=== PATIENT | female | born 1960 | race Caucasian/White ===

== ENCOUNTER 2016-11-07 15:49 | Emergency (ER) | payer OTHER ==
[~2016-11-07] VITALS: Ht 167.6 cm; Wt 136.4 kg
[~2016-11-07 15:49] MED LIST: ALBU8.5H IH; AMLO2.5T PO; APIX5TAB PO; DSS100 PO; FERR-89 PO; FLUO20CA30 PO; FURO40 PO; GABA-533 PO; INS7030 SQ; KDUR10 PO; METO5TAB95 PO; OMEP20 PO; SHOWER CHAIR; VITAD1000 PO; [UNRECOGNIZED DRUG - OTHER]
[2016-11-07 16:00] LABS: GLUCOSE,POINT OF CARE 232 MG/DL (70-110)
[2016-11-07] MEDS ORDERED: METO-325 PO (16:02)
[2016-11-07] MEDS ORDERED: HYDR-309 PO (16:02)
[2016-11-07] MEDS ORDERED: PATI8.4P PO (16:02)
[2016-11-07] MEDS ORDERED: LOSA50TA37 PO (16:02)
[2016-11-07] MEDS ORDERED: AMLO-511 PO (17:41)
[2016-11-07] MEDS ORDERED: HYDROCODONE/ACETAMINOPHEN 10-325 MG TABLET PO ONE (17:45)
[2016-11-07 18:32] VITALS: BP 146/61
== END 2016-11-07 19:29 | disposition home or self-care (01) ==
LOC: EMS 15:51
DX: S90.122A Contusion of left lesser toe(s) without damage to nail, initial encounter (principal); G89.29 Other chronic pain; F41.9 Anxiety disorder, unspecified; I25.10 Atherosclerotic heart disease of native coronary artery without angina pectoris; I50.9 Heart failure, unspecified; J44.9 Chronic obstructive pulmonary disease, unspecified; F32.9 Major depressive disorder, single episode, unspecified; E11.9 Type 2 diabetes mellitus without complications; E78.00 Pure hypercholesterolemia, unspecified; I10 Essential (primary) hypertension; W22.03XA Walked into furniture, initial encounter; Y93.89 Activity, other specified; Y92.9 Unspecified place or not applicable; Y99.9 Unspecified external cause status
CPT/HCPCS: 82962; 99284

== ENCOUNTER 2016-12-08 19:33 | Inpatient (IN) | payer OTHER ==
[~2016-12-08] VITALS: Ht 165.1 cm; Wt 161.9 kg
[~2016-12-08 19:33] MED LIST changes: -ALBU8.5H IH; +AMLO-511 PO; -AMLO2.5T PO; +HYDR-309 PO; -KDUR10 PO; +LOSA50TA37 PO; +METO-325 PO; -METO5TAB95 PO; +PATI8.4P PO
[2016-12-08 20:17] LABS: GLUCOSE,POINT OF CARE 209 MG/DL (70-110)
[2016-12-08 21:00] LABS: BASOPHILS % (AUTO) 0.5 % (0.0-2.0); EOSINOPHILS % (AUTO) 5.2 % (1.0-6.0); HEMATOCRIT 36.1 % (36-46); LYMPHOCYTES # (AUTO) 2.2 K/uL (1.0-4.8); LYMPHOCYTES % (AUTO) 26.6 % (22.0-44.0); MEAN CORPUSCULAR HEMOGLOBIN 28.1 pg (26.0-34.0); MEAN CORPUSCULAR HGB CONC 33.3 G/dL (31.0-37.0); MEAN CORPUSCULAR VOLUME 84 fL (80-100); MONOCYTES # (AUTO) 0.4 K/uL (0.1-1.0); MONOCYTES % (AUTO) 5.4 % (2.0-9.0); NEUTROPHILS # (AUTO) 5.1 K/uL (1.8-7.7); NEUTROPHILS % (AUTO) 62.3 % (40.0-70.0); PLATELET COUNT (AUTO) 328 K/uL (150-450); RED BLOOD CELL COUNT(AUTO) 4.28 MIL/uL (4.00-5.20); WHITE BLOOD COUNT (AUTO) 8.2 K/uL (4.5-11.0)
[2016-12-08 21:11] LABS: ANION GAP 9 mmol/L (8-16); CALCIUM, TOTAL 8.7 mg/dL (8.8-10.5); CARBON DIOXIDE 25 mmol/L (22-29); CHLORIDE 107 mmol/L (98-107); CREATININE 1.77 mg/dL (0.60-1.30); GLOMERULAR FILTR. RATE CALC 30 mL/min (>60); POTASSIUM 4.8 mmol/L (3.5-5.1); SODIUM SERUM 141 mmol/L (136-145); UREA NITROGEN, BLOOD 48 mg/dL (7-18)
[2016-12-08 21:18] LABS: ALANINE AMINOTRANSFERASE 23 U/L (12-78); ALBUMIN 3.3 g/dL (3.4-5.0); ASPARTATE AMINOTRANSFERASE 12 U/L (15-37); BILIRUBIN,TOTAL 0.2 mg/dL (0.1-1.0); CREATINE KINASE, TOTAL 68 U/L (26-192); TOTAL PROTEIN, SERUM 7.7 g/dL (6.4-8.2)
[2016-12-08 21:29] LABS: B-TYPE NATRIURETIC PEPTIDE 90 pg/mL (0-100)
[2016-12-09] VITALS (9 sets, daily range): BP systolic 113–165; BP diastolic 54–80
[2016-12-09] MEDS ORDERED: HYDROmorphone 2 MG/ML SYRINGE IVP ONE ×3 (00:15→09:45)
[2016-12-09] MEDS ORDERED: ONDANSETRON HCL 4 MG/2 ML VIAL IVP ONE (00:15)
[2016-12-09] MEDS ORDERED: SODIUM CHLORIDE 0.9% 1,000 ML IV ONE ×2 (00:30→02:45)
[2016-12-09 01:12] LABS: LACTIC ACID 1.1 mmol/L (0.4-2.0)
[2016-12-09 01:28] LABS: APPEARANCE,URINE CLEAR (CLEAR); GLUCOSE, URINE (UA) NEGATIVE (NEGATIVE); KETONES,URINE NEGATIVE (NEGATIVE); LEUKOCYTE ESTERASE ,URINE NEGATIVE (NEGATIVE); OCCULT BLOOD,URINE NEGATIVE (NEGATIVE); PH,URINE 5.5 (5.0-8.0); PROTEIN,URINE NEGATIVE (NEGATIVE)
[2016-12-09] MEDS ORDERED: LORazepam 2 MG/ML VIAL IVP ONE ×2 (01:30→02:45)
[2016-12-09 01:44] LABS: RBC,URINE None Seen /HPF (0-2); WBC,URINE 0-2 /HPF (0-5)
[2016-12-09] MEDS ORDERED: SODIUM CHLORIDE 0.45% 1,000 ML IV ONE (02:45)
[2016-12-09] MEDS ORDERED: ONDANSETRON HCL 4 MG/2 ML VIAL IVP PRN (02:45)
[2016-12-09] MEDS ORDERED: ACETAMINOPHEN 325 MG TABLET PO PRN ×2 (02:45→08:15)
[2016-12-09] MEDS ORDERED: 0.9% SODIUM CHLORIDE 10 ML SYRINGE IVP PRN (02:45)
[2016-12-09 07:44] LABS: GLUCOSE,POINT OF CARE 118 MG/DL (70-110)
[2016-12-09] MEDS ORDERED: DEXTROSE 50%-WATER 25 GM/50 ML SYRINGE IVP PRN (08:15)
[2016-12-09] MEDS ORDERED: BISACODYL 10 MG RECTAL RECTAL SUPPOSITORY PR PRN (08:15)
[2016-12-09] MEDS ORDERED: ALBUTEROL SULFATE 2.5 MG/0.5 ML NEB SOLUTION NEB PRN (08:15)
[2016-12-09] MEDS ORDERED: OxyCODONE HCL/ACETAMINOPHEN 5-325 MG TABLET PO PRN (08:15)
[2016-12-09] MEDS ORDERED: PANTOPRAZOLE SODIUM 40 MG DR TABLET PO SCH (09:00)
[2016-12-09] MEDS: DOCUSATE SODIUM 100 MG CAPSULE PO SCH ×2 (09:20→23:30)
[2016-12-09] MEDS: AmLODIPine BESYLATE 5 MG TABLET PO SCH (09:21)
[2016-12-09] MEDS: PANTOPRAZOLE SODIUM 40 MG DR TABLET PO SCH (09:21)
[2016-12-09] MEDS: APIXABAN 5 MG TABLET PO SCH ×2 (09:21→23:30)
[2016-12-09 11:37] LABS: GLUCOSE COMMENT 1 Doctor Notified; GLUCOSE,POINT OF CARE 195 MG/DL (70-110)
[2016-12-09] MEDS: INSULIN ASPART 100 UNITS/ML SQ PRN ×2 (12:22→21:04)
[2016-12-09] MEDS: OxyCODONE HCL/ACETAMINOPHEN 10-325 MG TABLET PO PRN ×2 (17:12→22:11)
[2016-12-09 18:41] LABS: GLUCOSE,POINT OF CARE 239 MG/DL (70-110)
[2016-12-10 04:57] VITALS: BP 137/60
[2016-12-10 07:02] VITALS: BP 142/66
[2016-12-10] MEDS: INSULIN ASPART 100 UNITS/ML SQ PRN ×2 (07:05→12:33)
[2016-12-10] MEDS: APIXABAN 5 MG TABLET PO SCH (08:38)
[2016-12-10] MEDS: DOCUSATE SODIUM 100 MG CAPSULE PO SCH (08:38)
[2016-12-10] MEDS: AmLODIPine BESYLATE 5 MG TABLET PO SCH (08:38)
[2016-12-10] MEDS: PANTOPRAZOLE SODIUM 40 MG DR TABLET PO SCH (08:38)
[2016-12-10] MEDS ORDERED: 0.9% SODIUM CHLORIDE 5 ML NEB SOLUTION NEB ONE (11:12)
[2016-12-10] MEDS ORDERED: MORPHINE SULFATE 2 MG/ML SYRINGE IVP ONE (11:15)
[2016-12-10] MEDS ORDERED: ONDANSETRON HCL 4 MG/2 ML VIAL IVP PRN (11:15)
[2016-12-10 11:34] VITALS: BP 133/57
[2016-12-10 15:51] LABS: GLUCOSE COMMENT 1 Received Meds; GLUCOSE,POINT OF CARE 325 MG/DL (70-110)
[2016-12-22 06:53] LABS: GLUCOSE COMMENT 1 Received Meds; GLUCOSE,POINT OF CARE 284 MG/DL (70-110)
== END 2016-12-10 15:30 | disposition home or self-care (01) | DRG 198 ==
LOC: EMS 19:35 → AHU 12-09 11:17 → 5S 12-09 21:30
PROVIDERS: ADMIT Internal Medicine; ATTEND Internal Medicine
DX: R07.89 Other chest pain (principal); I25.10 Atherosclerotic heart disease of native coronary artery without angina pectoris; E11.22 Type 2 diabetes mellitus with diabetic chronic kidney disease; E11.40 Type 2 diabetes mellitus with diabetic neuropathy, unspecified; E44.0 Moderate protein-calorie malnutrition; Z68.43 Body mass index [BMI] 50.0-59.9, adult; E66.01 Morbid (severe) obesity due to excess calories; F41.9 Anxiety disorder, unspecified; J44.9 Chronic obstructive pulmonary disease, unspecified; F32.9 Major depressive disorder, single episode, unspecified; K21.9 Gastro-esophageal reflux disease without esophagitis; E78.00 Pure hypercholesterolemia, unspecified; G89.29 Other chronic pain; I12.9 Hypertensive chronic kidney disease with stage 1 through stage 4 chronic kidney disease, or unspecified chronic kidney disease; N18.3 Chronic kidney disease, stage 3 (moderate); F29 Unspecified psychosis not due to a substance or known physiological condition; Z99.81 Dependence on supplemental oxygen; Z79.891 Long term (current) use of opiate analgesic; Z79.899 Other long term (current) drug therapy; Z79.01 Long term (current) use of anticoagulants; Z79.4 Long term (current) use of insulin; Z90.49 Acquired absence of other specified parts of digestive tract; Z95.5 Presence of coronary angioplasty implant and graft; Z86.711 Personal history of pulmonary embolism; Z86.718 Personal history of other venous thrombosis and embolism; Z87.440 Personal history of urinary (tract) infections; Z87.898 Personal history of other specified conditions
CPT/HCPCS: 82962; 83605; 85379; 87040; 93005; 94640; 96361; 96374; 96375; 96376; 99285; J1170; J1815; J2060; J2270; J2405; J7030

== ENCOUNTER 2017-02-02 19:09 | Emergency (ER) | payer OTHER ==
[~2017-02-02] VITALS: Ht 167.6 cm; Wt 136.0 kg
[2017-02-02] MEDS ORDERED: FEBU40T PO (19:30)
[2017-02-02] MEDS ORDERED: LOVA20 PO (19:30)
[2017-02-02 19:32] LABS: GLUCOSE,POINT OF CARE 192 MG/DL (70-110)
[2017-02-02 19:57] LABS: GLUCOSE,POINT OF CARE 184 MG/DL (70-110)
[2017-02-02 20:15] LABS: BASOPHILS % (AUTO) 0.5 % (0.0-2.0); EOSINOPHILS % (AUTO) 4.8 % (1.0-6.0); HEMATOCRIT 33.4 % (36-46); HEMOGLOBIN 10.9 g/dL (12.0-16.0); LYMPHOCYTES # (AUTO) 2.3 K/uL (1.0-4.8); LYMPHOCYTES % (AUTO) 26.6 % (22.0-44.0); MEAN CORPUSCULAR HGB CONC 32.6 G/dL (31.0-37.0); MEAN CORPUSCULAR VOLUME 86 fL (80-100); MONOCYTES # (AUTO) 0.6 K/uL (0.1-1.0); MONOCYTES % (AUTO) 7.1 % (2.0-9.0); NEUTROPHILS # (AUTO) 5.3 K/uL (1.8-7.7); PLATELET COUNT (AUTO) 295 K/uL (150-450); RED CELL DISTRIBUTION WIDTH 14.5 % (11.5-14.5); WHITE BLOOD COUNT (AUTO) 8.7 K/uL (4.5-11.0)
[2017-02-02 20:28] LABS: ANION GAP 12 mmol/L (8-16); CALCIUM, TOTAL 8.4 mg/dL (8.8-10.5); CARBON DIOXIDE 23 mmol/L (22-29); CHLORIDE 105 mmol/L (98-107); CREATININE 1.54 mg/dL (0.60-1.30); GLOMERULAR FILTR. RATE CALC 35 mL/min (>60); POTASSIUM 5.8 mmol/L (3.5-5.1); SODIUM SERUM 140 mmol/L (136-145); UREA NITROGEN, BLOOD 37 mg/dL (7-18)
[2017-02-02 20:33] LABS: ALANINE AMINOTRANSFERASE 21 U/L (12-78); ASPARTATE AMINOTRANSFERASE 13 U/L (15-37); BILIRUBIN,TOTAL 0.3 mg/dL (0.1-1.0); CREATINE KINASE, TOTAL 62 U/L (26-192); TOTAL PROTEIN, SERUM 7.1 g/dL (6.4-8.2)
[2017-02-02 20:59] LABS: B-TYPE NATRIURETIC PEPTIDE 50 pg/mL (0-100)
[2017-02-02] MEDS ORDERED: NITROGLYCERIN 2% (1 GM=INCH) PACKET TP ONE (21:00)
[2017-02-02] MEDS ORDERED: ONDANSETRON HCL 4 MG/2 ML VIAL IVP ONE (21:00)
[2017-02-02] MEDS ORDERED: MORPHINE SULFATE 4 MG/ML SYRINGE IVP ONE ×2 (21:00→22:00)
[2017-02-02 21:15] LABS: INR 0.9 (0.9-1.1); PROTHROMBIN TIME 9.8 SEC (9.4-11.6)
[2017-02-02] MEDS ORDERED: SODIUM POLYSTYRENE SULFONATE 15 GM/60 ML SUSPENSION BOTTLE PR ONE (22:30)
[2017-02-02 22:42] VITALS: BP 118/66
== END 2017-02-02 22:48 | disposition home or self-care (01) ==
LOC: EMS 19:11
DX: N28.9 Disorder of kidney and ureter, unspecified (principal); E87.5 Hyperkalemia; I13.0 Hypertensive heart and chronic kidney disease with heart failure and stage 1 through stage 4 chronic kidney disease, or unspecified chronic kidney disease; E11.29 Type 2 diabetes mellitus with other diabetic kidney complication; I50.9 Heart failure, unspecified; I25.10 Atherosclerotic heart disease of native coronary artery without angina pectoris; J44.9 Chronic obstructive pulmonary disease, unspecified; E78.00 Pure hypercholesterolemia, unspecified; K21.9 Gastro-esophageal reflux disease without esophagitis; E11.40 Type 2 diabetes mellitus with diabetic neuropathy, unspecified; Z79.4 Long term (current) use of insulin; Z86.718 Personal history of other venous thrombosis and embolism
CPT/HCPCS: 71010; 80053; 82550; 82962; 83880; 84484; 85025; 85379; 85610; 85730; 93005; 96374; 96375; 96376; 99285; J2270; J2405

== ENCOUNTER 2017-02-24 01:23 | Inpatient (IN) | payer OTHER ==
[~2017-02-24] VITALS: Ht 167.6 cm; Wt 163.7 kg
[2017-02-24] VITALS (7 sets, daily range): BP systolic 91–147; BP diastolic 54–69
[~2017-02-24 01:23] MED LIST changes: -DSS100 PO; +FEBU40T PO; -FERR-89 PO; +LOVA20 PO
[2017-02-24] MEDS ORDERED: FERR-89 PO (01:36)
[2017-02-24] MEDS ORDERED: DOCU-275 PO (01:36)
[2017-02-24 02:10] LABS: BASOPHILS % (AUTO) 0.5 % (0.0-2.0); EOSINOPHILS % (AUTO) 6.2 % (1.0-6.0); HEMATOCRIT 33.2 % (36-46); HEMOGLOBIN 10.7 g/dL (12.0-16.0); LYMPHOCYTES # (AUTO) 2.6 K/uL (1.0-4.8); LYMPHOCYTES % (AUTO) 28.9 % (22.0-44.0); MEAN CORPUSCULAR HEMOGLOBIN 27.3 pg (26.0-34.0); MEAN CORPUSCULAR HGB CONC 32.1 G/dL (31.0-37.0); MEAN CORPUSCULAR VOLUME 85 fL (80-100); MONOCYTES # (AUTO) 0.7 K/uL (0.1-1.0); MONOCYTES % (AUTO) 7.4 % (2.0-9.0); NEUTROPHILS # (AUTO) 5.1 K/uL (1.8-7.7); PLATELET COUNT (AUTO) 329 K/uL (150-450); WHITE BLOOD COUNT (AUTO) 8.9 K/uL (4.5-11.0)
[2017-02-24 02:22] LABS: CALCIUM, TOTAL 8.4 mg/dL (8.8-10.5); CREATININE 1.74 mg/dL (0.60-1.30); POTASSIUM 4.5 mmol/L (3.5-5.1)
[2017-02-24 02:28] LABS: ALBUMIN 3.1 g/dL (3.4-5.0); BILIRUBIN,TOTAL 0.3 mg/dL (0.1-1.0)
[2017-02-24] MEDS ORDERED: ONDANSETRON HCL 4 MG/2 ML VIAL IVP ONE (02:30)
[2017-02-24] MEDS ORDERED: HYDROmorphone 2 MG/ML SYRINGE IVP ONE ×2 (02:30→04:30)
[2017-02-24 02:52] LABS: INR 0.9 (0.9-1.1); PROTHROMBIN TIME 9.8 SEC (9.4-11.6)
[2017-02-24] MEDS ORDERED: LORazepam 2 MG/ML VIAL IVP ONE (04:30)
[2017-02-24] MEDS ORDERED: ACETAMINOPHEN 325 MG TABLET PO PRN ×2 (05:15→05:45)
[2017-02-24] MEDS ORDERED: 0.9% SODIUM CHLORIDE 10 ML SYRINGE IVP PRN (05:15)
[2017-02-24] MEDS ORDERED: ONDANSETRON HCL 4 MG/2 ML VIAL IVP PRN ×2 (05:15→05:45)
[2017-02-24] MEDS ORDERED: MAGNESIUM SULFATE 2 GM in DEXTROSE 5%-WATER 50 ML IV PRN (05:45)
[2017-02-24] MEDS ORDERED: MAGNESIUM HYDROXIDE SUSPENSION 30 ML UDCUP PO PRN (05:45)
[2017-02-24] MEDS ORDERED: ALBUTEROL SULFATE 2.5 MG/0.5 ML NEB SOLUTION NEB PRN (05:45)
[2017-02-24] MEDS ORDERED: POTASSIUM CHL 10 MEQ/WATER 50 ML IV PRN (05:45)
[2017-02-24] MEDS ORDERED: POTASSIUM CHLORIDE 20 MEQ ER TABLET PO PRN ×2 (05:45)
[2017-02-24] MEDS ORDERED: BISACODYL 10 MG RECTAL RECTAL SUPPOSITORY PR PRN (05:45)
[2017-02-24] MEDS ORDERED: IPRATROPIUM BROMIDE 0.5 MG/2.5 ML NEB SOLUTION NEB PRN (05:45)
[2017-02-24] MEDS ORDERED: MAGNESIUM SULFATE 4 GM/WATER 100 ML IV PRN (05:45)
[2017-02-24] MEDS ORDERED: MAGNESIUM OXIDE 400 MG TABLET PO PRN (05:45)
[2017-02-24] MEDS: NITROGLYCERIN 2% (1 GM=INCH) PACKET TP SCH ×3 (06:31→17:28)
[2017-02-24] MEDS: MORPHINE SULFATE 2 MG/ML SYRINGE IVP PRN ×3 (06:31→17:42)
[2017-02-24] MEDS ORDERED: SESTAMIBI TC99M/UD ISOTOPE 1 EA INJ INJ ONE ×2 (07:50→10:45)
[2017-02-24] MEDS: FERROUS SULFATE 325 MG EC TABLET PO SCH ×2 (08:00→18:00)
[2017-02-24] MEDS ORDERED: NITROGLYCERIN 2% (1 GM=INCH) PACKET TP SCH (08:00)
[2017-02-24] MEDS: GABAPENTIN 400 MG CAPSULE PO SCH ×3 (09:00→21:06)
[2017-02-24] MEDS: FLUoxetine HCL 20 MG CAPSULE PO SCH (09:00)
[2017-02-24] MEDS: INSULIN HUMAN NPH-REGULAR 70/30 100 UNITS/ML SQ SCH ×3 (09:00→21:07)
[2017-02-24] MEDS: FUROSEMIDE 40 MG TABLET PO SCH (09:00)
[2017-02-24] MEDS: CHOLECALCIFEROL (VIT D3) 1,000 UNITS TABLET PO SCH (09:00)
[2017-02-24] MEDS: AmLODIPine BESYLATE 5 MG TABLET PO SCH (09:00)
[2017-02-24] MEDS ORDERED: APIXABAN 5 MG TABLET PO SCH (09:00)
[2017-02-24] MEDS: HEPARIN SODIUM,PORCINE 5,000 UNITS/ML VIAL SQ SCH ×2 (09:00→21:02)
[2017-02-24] MEDS: OMEPRAZOLE 20 MG CAPSULE PO SCH ×2 (09:00→15:32)
[2017-02-24] MEDS: DOCUSATE SODIUM 100 MG CAPSULE PO SCH ×2 (09:00→21:03)
[2017-02-24] MEDS: LOSARTAN POTASSIUM 50 MG TABLET PO SCH ×2 (09:00→21:02)
[2017-02-24] MEDS ORDERED: REGADENOSON 0.4 MG/5 ML PF SYRINGE IVP ONE ×2 (10:46→16:53)
[2017-02-24] MEDS ORDERED: DEXTROSE 50%-WATER 25 GM/50 ML SYRINGE IVP PRN (15:45)
[2017-02-24 16:33] LABS: GLUCOSE,POINT OF CARE 457 MG/DL (70-110)
[2017-02-24] MEDS: INSULIN ASPART 100 UNITS/ML SQ PRN ×2 (17:30→21:08)
[2017-02-24] MEDS: OxyCODONE HCL/ACETAMINOPHEN 5-325 MG TABLET PO PRN (21:03)
[2017-02-24] MEDS: ZOLPIDEM TARTRATE 5 MG TABLET PO PRN (21:24)
[2017-02-25] VITALS (7 sets, daily range): BP systolic 114–142; BP diastolic 51–73
[2017-02-25] MEDS: NITROGLYCERIN 2% (1 GM=INCH) PACKET TP SCH ×4 (00:12→17:16)
[2017-02-25] MEDS: MORPHINE SULFATE 2 MG/ML SYRINGE IVP PRN ×4 (00:12→20:33)
[2017-02-25] MEDS: OxyCODONE HCL/ACETAMINOPHEN 5-325 MG TABLET PO PRN (05:01)
[2017-02-25 05:50] LABS: BASOPHILS % (AUTO) 0.6 % (0.0-2.0); EOSINOPHILS % (AUTO) 5.8 % (1.0-6.0); HEMOGLOBIN 10.4 g/dL (12.0-16.0); LYMPHOCYTES # (AUTO) 2.6 K/uL (1.0-4.8); MEAN CORPUSCULAR HEMOGLOBIN 27.6 pg (26.0-34.0); MEAN CORPUSCULAR HGB CONC 32.5 G/dL (31.0-37.0); MEAN CORPUSCULAR VOLUME 85 fL (80-100); MONOCYTES # (AUTO) 0.6 K/uL (0.1-1.0); MONOCYTES % (AUTO) 7.7 % (2.0-9.0); NEUTROPHILS # (AUTO) 3.6 K/uL (1.8-7.7); NEUTROPHILS % (AUTO) 49.9 % (40.0-70.0); PLATELET COUNT (AUTO) 278 K/uL (150-450); RED BLOOD CELL COUNT(AUTO) 3.77 MIL/uL (4.00-5.20); RED CELL DISTRIBUTION WIDTH 13.7 % (11.5-14.5); WHITE BLOOD COUNT (AUTO) 7.3 K/uL (4.5-11.0)
[2017-02-25 06:38] LABS: GLUCOSE,POINT OF CARE 188 MG/DL (70-110)
[2017-02-25 06:38] LABS: GLUCOSE COMMENT 1 Received Meds; GLUCOSE,POINT OF CARE 358 MG/DL (70-110)
[2017-02-25 07:16] LABS: BILIRUBIN,TOTAL 0.3 mg/dL (0.1-1.0); CALCIUM, TOTAL 8.5 mg/dL (8.8-10.5); CREATININE 1.59 mg/dL (0.60-1.30); MAGNESIUM 2.2 mg/dL (1.80-2.40); PHOSPHORUS 4.9 mg/dL (2.5-4.9); POTASSIUM 4.2 mmol/L (3.5-5.1); TOTAL PROTEIN, SERUM 6.9 g/dL (6.4-8.2)
[2017-02-25 07:33] LABS: GLUCOSE,POINT OF CARE 72 MG/DL (70-110)
[2017-02-25] MEDS: FERROUS SULFATE 325 MG EC TABLET PO SCH ×2 (08:29→17:56)
[2017-02-25] MEDS: FLUoxetine HCL 20 MG CAPSULE PO SCH (08:29)
[2017-02-25] MEDS: CHOLECALCIFEROL (VIT D3) 1,000 UNITS TABLET PO SCH (08:29)
[2017-02-25] MEDS: FUROSEMIDE 40 MG TABLET PO SCH (08:29)
[2017-02-25] MEDS: OMEPRAZOLE 20 MG CAPSULE PO SCH (08:29)
[2017-02-25] MEDS: GABAPENTIN 400 MG CAPSULE PO SCH ×3 (08:30→20:45)
[2017-02-25] MEDS: INSULIN HUMAN NPH-REGULAR 70/30 100 UNITS/ML SQ SCH ×2 (08:38→20:34)
[2017-02-25] MEDS: DOCUSATE SODIUM 100 MG CAPSULE PO SCH ×2 (08:39→20:32)
[2017-02-25] MEDS: HEPARIN SODIUM,PORCINE 5,000 UNITS/ML VIAL SQ SCH ×2 (12:11→20:32)
[2017-02-25] MEDS: AmLODIPine BESYLATE 5 MG TABLET PO SCH (12:12)
[2017-02-25] MEDS: LOSARTAN POTASSIUM 50 MG TABLET PO SCH ×2 (12:12→20:33)
[2017-02-25] MEDS: INSULIN ASPART 100 UNITS/ML SQ PRN ×3 (12:23→20:35)
[2017-02-25 14:07] LABS: GLUCOSE COMMENT 1 Received Meds; GLUCOSE,POINT OF CARE 118 MG/DL (70-110)
[2017-02-25 14:13] LABS: GLUCOSE,POINT OF CARE 142 MG/DL (70-110)
[2017-02-25] MEDS ORDERED: CHOLECALCIFEROL (VIT D3) 2,000 UNITS TABLET PO SCH (14:30)
[2017-02-25] MEDS: FEBUXOSTAT 40 MG TABLET PO SCH (16:47)
[2017-02-25] MEDS: ZOLPIDEM TARTRATE 5 MG TABLET PO PRN (20:32)
[2017-02-25 20:43] LABS: GLUCOSE COMMENT 1 Received Meds; GLUCOSE,POINT OF CARE 358 MG/DL (70-110)
[2017-02-25] MEDS ORDERED: FUROSEMIDE 40 MG TABLET PO SCH (21:00)
[2017-02-26] VITALS (18 sets, daily range): BP systolic 104–175; BP diastolic 48–92
[2017-02-26] MEDS: NITROGLYCERIN 2% (1 GM=INCH) PACKET TP SCH ×4 (00:51→17:47)
[2017-02-26] MEDS: MORPHINE SULFATE 2 MG/ML SYRINGE IVP PRN ×3 (00:52→09:38)
[2017-02-26] MEDS: INSULIN ASPART 100 UNITS/ML SQ PRN ×3 (05:48→20:33)
[2017-02-26 07:22] LABS: PHOSPHORUS 3.9 mg/dL (2.5-4.9); URIC ACID 6.4 mg/dL (2.6-7.2)
[2017-02-26] MEDS ORDERED: SODIUM BICARBONATE 150 MEQ in DEXTROSE 5%-WATER 850 ML IV ONE (07:45)
[2017-02-26] MEDS ORDERED: PATIROMER CALCIUM SORBITEX 8.4 GM PO SCH (08:00)
[2017-02-26] MEDS: FERROUS SULFATE 325 MG EC TABLET PO SCH ×2 (08:00→17:58)
[2017-02-26] MEDS: GABAPENTIN 400 MG CAPSULE PO SCH ×3 (09:00→20:07)
[2017-02-26] MEDS ORDERED: SODIUM BICARBONATE 75 MEQ in SODIUM CHLORIDE 0.45% 1,000 ML IV SCH (09:00)
[2017-02-26] MEDS: AmLODIPine BESYLATE 5 MG TABLET PO SCH (09:00)
[2017-02-26] MEDS: HEPARIN SODIUM,PORCINE 5,000 UNITS/ML VIAL SQ SCH ×2 (09:00→20:07)
[2017-02-26] MEDS: DOCUSATE SODIUM 100 MG CAPSULE PO SCH ×2 (09:00→20:07)
[2017-02-26] MEDS: ACETYLCYSTEINE 20% 200 MG/ML 4 ML ORAL SOLUTION PO SCH ×2 (10:46→20:08)
[2017-02-26 11:02] LABS: GLUCOSE COMMENT 1 Received Meds; GLUCOSE,POINT OF CARE 290 MG/DL (70-110)
[2017-02-26] MEDS ORDERED: LIDOCAINE HCL/PF 1% 30 ML VIAL ONE (11:27)
[2017-02-26] MEDS ORDERED: HEPARIN SODIUM 1000 UNITS/NS 1,000 ML ONE (11:27)
[2017-02-26] MEDS ORDERED: SODIUM BICARBONATE 50 MEQ/50 ML VIAL ONE (11:27)
[2017-02-26] MEDS ORDERED: IOHEXOL 300 MG/ML 150 ML VIAL ONE (11:27)
[2017-02-26] MEDS: INSULIN HUMAN NPH-REGULAR 70/30 100 UNITS/ML SQ SCH ×2 (11:29→20:33)
[2017-02-26] MEDS: FEBUXOSTAT 40 MG TABLET PO SCH (11:58)
[2017-02-26] MEDS: CHOLECALCIFEROL (VIT D3) 1,000 UNITS TABLET PO SCH (11:58)
[2017-02-26] MEDS: OMEPRAZOLE 20 MG CAPSULE PO SCH (11:58)
[2017-02-26] MEDS ORDERED: SODIUM CHLORIDE 0.9% 500 ML IV ONE (12:52)
[2017-02-26] MEDS ORDERED: HEPARIN SODIUM 2,000 UNITS in HEPARIN SODIUM 1000 UNITS/NS 1,000 ML IARTER ONE (12:52)
[2017-02-26] MEDS ORDERED: LIDOCAINE 1% 30 ML/SOD BICARB 8.4% 4 ML SQ ONE (13:00)
[2017-02-26] MEDS ORDERED: IOHEXOL 300 MG/ML 150 ML VIAL IARTER ONE (13:00)
[2017-02-26] MEDS ORDERED: HYDROmorphone 2 MG/ML SYRINGE IVP ONE (14:00)
[2017-02-26 14:24] LABS: BASOPHILS % (AUTO) 0.7 % (0.0-2.0); EOSINOPHILS % (AUTO) 6.4 % (1.0-6.0); HEMATOCRIT 30.6 % (36-46); HEMOGLOBIN 9.8 g/dL (12.0-16.0); LYMPHOCYTES # (AUTO) 1.6 K/uL (1.0-4.8); LYMPHOCYTES % (AUTO) 27.3 % (22.0-44.0); MEAN CORPUSCULAR HEMOGLOBIN 27.2 pg (26.0-34.0); MEAN CORPUSCULAR HGB CONC 32.1 G/dL (31.0-37.0); MEAN CORPUSCULAR VOLUME 85 fL (80-100); MONOCYTES # (AUTO) 0.5 K/uL (0.1-1.0); MONOCYTES % (AUTO) 7.9 % (2.0-9.0); NEUTROPHILS # (AUTO) 3.3 K/uL (1.8-7.7); NEUTROPHILS % (AUTO) 57.7 % (40.0-70.0); PLATELET COUNT (AUTO) 253 K/uL (150-450); RED BLOOD CELL COUNT(AUTO) 3.61 MIL/uL (4.00-5.20); RED CELL DISTRIBUTION WIDTH 13.6 % (11.5-14.5); WHITE BLOOD COUNT (AUTO) 5.7 K/uL (4.5-11.0)
[2017-02-26 14:39] LABS: CALCIUM, TOTAL 8.2 mg/dL (8.8-10.5); CREATININE 1.45 mg/dL (0.60-1.30); POTASSIUM 4.6 mmol/L (3.5-5.1)
[2017-02-26 14:41] LABS: BILIRUBIN,TOTAL 0.3 mg/dL (0.1-1.0); TOTAL PROTEIN, SERUM 6.8 g/dL (6.4-8.2)
[2017-02-26] MEDS: HYDROmorphone 2 MG/ML SYRINGE IVP PRN (20:07)
[2017-02-26 20:22] LABS: GLUCOSE COMMENT 1 Received Meds; GLUCOSE,POINT OF CARE 185 MG/DL (70-110)
[2017-02-26 20:22] LABS: GLUCOSE COMMENT 1 Received Meds; GLUCOSE,POINT OF CARE 286 MG/DL (70-110)
[2017-02-26 20:22] LABS: GLUCOSE,POINT OF CARE 306 MG/DL (70-110)
[2017-02-27] VITALS (10 sets, daily range): BP systolic 121–148; BP diastolic 50–84
[2017-02-27] MEDS: HYDROmorphone 2 MG/ML SYRINGE IVP PRN ×5 (00:08→20:28)
[2017-02-27] MEDS: NITROGLYCERIN 2% (1 GM=INCH) PACKET TP SCH ×4 (00:08→17:29)
[2017-02-27] MEDS: ZOLPIDEM TARTRATE 5 MG TABLET PO PRN (01:21)
[2017-02-27 04:06] LABS: GLUCOSE COMMENT 1 Received Meds; GLUCOSE,POINT OF CARE 198 MG/DL (70-110)
[2017-02-27] MEDS: INSULIN ASPART 100 UNITS/ML SQ PRN ×4 (06:07→20:29)
[2017-02-27 06:41] LABS: BASOPHILS % (AUTO) 0.5 % (0.0-2.0); EOSINOPHILS % (AUTO) 5.4 % (1.0-6.0); HEMATOCRIT 29.8 % (36-46); HEMOGLOBIN 9.8 g/dL (12.0-16.0); LYMPHOCYTES # (AUTO) 1.5 K/uL (1.0-4.8); LYMPHOCYTES % (AUTO) 21.1 % (22.0-44.0); MEAN CORPUSCULAR VOLUME 85 fL (80-100); MONOCYTES # (AUTO) 0.6 K/uL (0.1-1.0); MONOCYTES % (AUTO) 8.2 % (2.0-9.0); NEUTROPHILS # (AUTO) 4.7 K/uL (1.8-7.7); NEUTROPHILS % (AUTO) 64.8 % (40.0-70.0); PLATELET COUNT (AUTO) 267 K/uL (150-450); RED BLOOD CELL COUNT(AUTO) 3.51 MIL/uL (4.00-5.20); RED CELL DISTRIBUTION WIDTH 13.8 % (11.5-14.5); WHITE BLOOD COUNT (AUTO) 7.2 K/uL (4.5-11.0)
[2017-02-27 07:41] LABS: BILIRUBIN,TOTAL 0.3 mg/dL (0.1-1.0); CALCIUM, TOTAL 8.4 mg/dL (8.8-10.5); CREATININE 1.51 mg/dL (0.60-1.30); MAGNESIUM 2.2 mg/dL (1.80-2.40); POTASSIUM 4.4 mmol/L (3.5-5.1); TOTAL PROTEIN, SERUM 6.8 g/dL (6.4-8.2)
[2017-02-27] MEDS: FERROUS SULFATE 325 MG EC TABLET PO SCH ×2 (08:34→17:29)
[2017-02-27] MEDS: CHOLECALCIFEROL (VIT D3) 1,000 UNITS TABLET PO SCH (08:34)
[2017-02-27] MEDS: DOCUSATE SODIUM 100 MG CAPSULE PO SCH ×2 (08:34→20:22)
[2017-02-27] MEDS: GABAPENTIN 400 MG CAPSULE PO SCH ×3 (08:34→20:23)
[2017-02-27] MEDS: AmLODIPine BESYLATE 5 MG TABLET PO SCH (08:34)
[2017-02-27] MEDS: FEBUXOSTAT 40 MG TABLET PO SCH (08:34)
[2017-02-27] MEDS: OMEPRAZOLE 20 MG CAPSULE PO SCH (08:34)
[2017-02-27] MEDS: ACETYLCYSTEINE 20% 200 MG/ML 4 ML ORAL SOLUTION PO SCH ×2 (08:35→20:23)
[2017-02-27] MEDS: HEPARIN SODIUM,PORCINE 5,000 UNITS/ML VIAL SQ SCH ×2 (08:35→20:23)
[2017-02-27] MEDS: INSULIN HUMAN NPH-REGULAR 70/30 100 UNITS/ML SQ SCH ×2 (08:39→20:26)
[2017-02-27] MEDS: LIDOCAINE HCL 5% TRANSDERMAL PATCH TD SCH (11:32)
[2017-02-27 18:17] LABS: GLUCOSE COMMENT 1 Received Meds; GLUCOSE,POINT OF CARE 201 MG/DL (70-110)
[2017-02-27] MEDS: -LIDODERM PATCH NOTE- MISC SCH ×2 (20:39)
[2017-02-27] MEDS: OxyCODONE HCL/ACETAMINOPHEN 5-325 MG TABLET PO PRN (21:33)
[2017-02-28] MEDS: NITROGLYCERIN 2% (1 GM=INCH) PACKET TP SCH ×4 (00:23→17:34)
[2017-02-28] MEDS: HYDROmorphone 2 MG/ML SYRINGE IVP PRN ×5 (00:30→19:40)
[2017-02-28] MEDS: ZOLPIDEM TARTRATE 5 MG TABLET PO PRN (01:43)
[2017-02-28 05:00] VITALS: BP 133/62
[2017-02-28] MEDS: INSULIN ASPART 100 UNITS/ML SQ PRN ×4 (05:51→21:39)
[2017-02-28 06:23] LABS: BASOPHILS % (AUTO) 0.6 % (0.0-2.0); EOSINOPHILS % (AUTO) 8.2 % (1.0-6.0); HEMATOCRIT 31.5 % (36-46); HEMOGLOBIN 10.2 g/dL (12.0-16.0); LYMPHOCYTES % (AUTO) 29.4 % (22.0-44.0); MEAN CORPUSCULAR HEMOGLOBIN 27.8 pg (26.0-34.0); MEAN CORPUSCULAR HGB CONC 32.5 G/dL (31.0-37.0); MEAN CORPUSCULAR VOLUME 86 fL (80-100); MONOCYTES # (AUTO) 0.5 K/uL (0.1-1.0); MONOCYTES % (AUTO) 8.1 % (2.0-9.0); NEUTROPHILS # (AUTO) 3.6 K/uL (1.8-7.7); NEUTROPHILS % (AUTO) 53.7 % (40.0-70.0); PLATELET COUNT (AUTO) 283 K/uL (150-450); RED BLOOD CELL COUNT(AUTO) 3.67 MIL/uL (4.00-5.20); RED CELL DISTRIBUTION WIDTH 14.1 % (11.5-14.5); WHITE BLOOD COUNT (AUTO) 6.7 K/uL (4.5-11.0)
[2017-02-28 06:47] LABS: GLUCOSE COMMENT 1 Received Meds; GLUCOSE,POINT OF CARE 191 MG/DL (70-110)
[2017-02-28 06:58] LABS: ALBUMIN 3.3 g/dL (3.4-5.0); BILIRUBIN,TOTAL 0.3 mg/dL (0.1-1.0); CREATININE 1.64 mg/dL (0.60-1.30); MAGNESIUM 2.4 mg/dL (1.80-2.40); POTASSIUM 4.5 mmol/L (3.5-5.1); TOTAL PROTEIN, SERUM 7.5 g/dL (6.4-8.2)
[2017-02-28] MEDS: HEPARIN SODIUM,PORCINE 5,000 UNITS/ML VIAL SQ SCH ×2 (08:10→21:24)
[2017-02-28] MEDS: LIDOCAINE HCL 5% TRANSDERMAL PATCH TD SCH (08:17)
[2017-02-28] MEDS: OMEPRAZOLE 20 MG CAPSULE PO SCH (08:19)
[2017-02-28] MEDS: GABAPENTIN 400 MG CAPSULE PO SCH ×3 (08:19→21:24)
[2017-02-28] MEDS: FEBUXOSTAT 40 MG TABLET PO SCH (08:19)
[2017-02-28] MEDS: CHOLECALCIFEROL (VIT D3) 1,000 UNITS TABLET PO SCH (08:19)
[2017-02-28] MEDS: INSULIN HUMAN NPH-REGULAR 70/30 100 UNITS/ML SQ SCH ×2 (08:19→21:39)
[2017-02-28] MEDS: AmLODIPine BESYLATE 5 MG TABLET PO SCH (08:19)
[2017-02-28] MEDS: DOCUSATE SODIUM 100 MG CAPSULE PO SCH ×2 (08:19→21:24)
[2017-02-28] MEDS: FERROUS SULFATE 325 MG EC TABLET PO SCH ×2 (08:19→17:34)
[2017-02-28 11:11] VITALS: BP 140/65
[2017-02-28] MEDS: SODIUM CHLORIDE 0.9% 1,000 ML IV SCH (15:11)
[2017-02-28 17:47] VITALS: BP 137/43
[2017-02-28 17:57] LABS: GLUCOSE COMMENT 1 Received Meds; GLUCOSE,POINT OF CARE 242 MG/DL (70-110)
[2017-02-28 19:13] VITALS: BP 123/58
[2017-02-28] MEDS: OxyCODONE HCL/ACETAMINOPHEN 5-325 MG TABLET PO PRN (21:26)
[2017-02-28] MEDS: -LIDODERM PATCH NOTE- MISC SCH ×2 (21:41)
[2017-02-28 23:55] VITALS: BP 130/75
[2017-03-01] MEDS: HYDROmorphone 2 MG/ML SYRINGE IVP PRN ×4 (00:22→13:44)
[2017-03-01] MEDS: NITROGLYCERIN 2% (1 GM=INCH) PACKET TP SCH ×3 (00:23→12:08)
[2017-03-01] MEDS: ZOLPIDEM TARTRATE 5 MG TABLET PO PRN (01:34)
[2017-03-01] MEDS: SODIUM CHLORIDE 0.9% 1,000 ML IV SCH (03:35)
[2017-03-01 04:58] VITALS: BP 146/77
[2017-03-01] MEDS: INSULIN ASPART 100 UNITS/ML SQ PRN (05:56)
[2017-03-01 06:47] LABS: GLUCOSE,POINT OF CARE 110 MG/DL (70-110)
[2017-03-01 06:52] LABS: GLUCOSE COMMENT 1 Received Meds; GLUCOSE,POINT OF CARE 244 MG/DL (70-110)
[2017-03-01 07:29] VITALS: BP 138/71
[2017-03-01] MEDS: OMEPRAZOLE 20 MG CAPSULE PO SCH (08:05)
[2017-03-01] MEDS: CHOLECALCIFEROL (VIT D3) 1,000 UNITS TABLET PO SCH (08:05)
[2017-03-01] MEDS: DOCUSATE SODIUM 100 MG CAPSULE PO SCH (08:05)
[2017-03-01] MEDS: AmLODIPine BESYLATE 5 MG TABLET PO SCH (08:05)
[2017-03-01] MEDS: GABAPENTIN 400 MG CAPSULE PO SCH (08:05)
[2017-03-01] MEDS: FERROUS SULFATE 325 MG EC TABLET PO SCH (08:05)
[2017-03-01] MEDS: LIDOCAINE HCL 5% TRANSDERMAL PATCH TD SCH (08:06)
[2017-03-01] MEDS: FEBUXOSTAT 40 MG TABLET PO SCH (08:06)
[2017-03-01] MEDS: HEPARIN SODIUM,PORCINE 5,000 UNITS/ML VIAL SQ SCH (08:06)
[2017-03-01 08:12] LABS: GLUCOSE COMMENT 1 Received Meds; GLUCOSE,POINT OF CARE 275 MG/DL (70-110)
[2017-03-01] MEDS: INSULIN HUMAN NPH-REGULAR 70/30 100 UNITS/ML SQ SCH (08:23)
[2017-03-01 10:11] LABS: GLUCOSE COMMENT 1 Received Meds; GLUCOSE,POINT OF CARE 313 MG/DL (70-110)
[2017-03-01 10:51] LABS: CALCIUM, TOTAL 8.7 mg/dL (8.8-10.5); CREATININE 1.29 mg/dL (0.60-1.30); POTASSIUM 4.2 mmol/L (3.5-5.1)
[2017-03-01 11:26] VITALS: BP 140/69
[2017-03-01 20:52] LABS: GLUCOSE COMMENT 1 Received Meds; GLUCOSE,POINT OF CARE 258 MG/DL (70-110)
[2017-03-02 06:22] LABS: GLUCOSE,POINT OF CARE 162 MG/DL (70-110)
[2017-03-02 18:18] LABS: GLUCOSE,POINT OF CARE 90 MG/DL (70-110)
== END 2017-03-01 14:10 | disposition home or self-care (01) | DRG 192 ==
LOC: EMS 01:26 → 5N 05:28 → 5S 03-01 05:20
PROVIDERS: ADMIT Internal Medicine; ATTEND Internal Medicine
PROC: 4A023N7 Measurement of Cardiac Sampling and Pressure, Left Heart, Percutaneous Approach (ICD-10-PCS; principal; 2017-02-26)
PROC: B2111ZZ Fluoroscopy of Multiple Coronary Arteries using Low Osmolar Contrast (ICD-10-PCS; 2017-02-26)
PROC: B2151ZZ Fluoroscopy of Left Heart using Low Osmolar Contrast (ICD-10-PCS; 2017-02-26)
PROC: B41J1ZZ Fluoroscopy of Other Lower Arteries using Low Osmolar Contrast (ICD-10-PCS; 2017-02-26)
DX: I25.110 Atherosclerotic heart disease of native coronary artery with unstable angina pectoris (principal); I13.2 Hypertensive heart and chronic kidney disease with heart failure and with stage 5 chronic kidney disease, or end stage renal disease; E11.21 Type 2 diabetes mellitus with diabetic nephropathy; N17.9 Acute kidney failure, unspecified; N18.3 Chronic kidney disease, stage 3 (moderate); E11.40 Type 2 diabetes mellitus with diabetic neuropathy, unspecified; E11.65 Type 2 diabetes mellitus with hyperglycemia; E11.22 Type 2 diabetes mellitus with diabetic chronic kidney disease; E78.5 Hyperlipidemia, unspecified; E55.9 Vitamin D deficiency, unspecified; E66.01 Morbid (severe) obesity due to excess calories; J44.9 Chronic obstructive pulmonary disease, unspecified; D63.1 Anemia in chronic kidney disease; E79.0 Hyperuricemia without signs of inflammatory arthritis and tophaceous disease; M54.5 Low back pain; G89.29 Other chronic pain; F31.9 Bipolar disorder, unspecified; I50.30 Unspecified diastolic (congestive) heart failure; F12.90 Cannabis use, unspecified, uncomplicated; K21.9 Gastro-esophageal reflux disease without esophagitis; Z86.718 Personal history of other venous thrombosis and embolism; Z68.43 Body mass index [BMI] 50.0-59.9, adult; Z79.01 Long term (current) use of anticoagulants; Z90.49 Acquired absence of other specified parts of digestive tract; Z86.711 Personal history of pulmonary embolism
CPT/HCPCS: 70450; 72100; 78452; 82962; 83735; 84100; 84550; 85379; 87081; 93005; 93017; 93306; 93970; 96374; 96375; 96376; 97161; 99285; A9500; J1170; J1644; J1815; J2060; J2270; J2405; J2785; J3490; J7030; J7060; Q9967

== ENCOUNTER 2017-03-23 21:43 | Inpatient (IN) | payer OTHER ==
[~2017-03-23] VITALS: Ht 167.6 cm; Wt 159.9 kg
[~2017-03-23 21:43] MED LIST changes: +DOCU-275 PO; -FEBU40T PO; +FERR-89 PO; -LOVA20 PO; -SHOWER CHAIR; -[UNRECOGNIZED DRUG - OTHER]
[2017-03-23 22:07] LABS: GLUCOSE,POINT OF CARE 242 MG/DL (70-110)
[2017-03-23 22:37] LABS: BASOPHILS % (AUTO) 0.6 % (0.0-2.0); EOSINOPHILS % (AUTO) 8.6 % (1.0-6.0); HEMATOCRIT 32.4 % (36-46); HEMOGLOBIN 10.9 g/dL (12.0-16.0); LYMPHOCYTES # (AUTO) 2.6 K/uL (1.0-4.8); LYMPHOCYTES % (AUTO) 31.7 % (22.0-44.0); MEAN CORPUSCULAR HEMOGLOBIN 28.3 pg (26.0-34.0); MEAN CORPUSCULAR HGB CONC 33.7 G/dL (31.0-37.0); MEAN CORPUSCULAR VOLUME 84 fL (80-100); MONOCYTES # (AUTO) 0.5 K/uL (0.1-1.0); MONOCYTES % (AUTO) 6.5 % (2.0-9.0); NEUTROPHILS # (AUTO) 4.4 K/uL (1.8-7.7); NEUTROPHILS % (AUTO) 52.6 % (40.0-70.0); PLATELET COUNT (AUTO) 299 K/uL (150-450); RED BLOOD CELL COUNT(AUTO) 3.87 MIL/uL (4.00-5.20); RED CELL DISTRIBUTION WIDTH 13.8 % (11.5-14.5); WHITE BLOOD COUNT (AUTO) 8.3 K/uL (4.5-11.0)
[2017-03-23 22:47] LABS: CALCIUM, TOTAL 8.4 mg/dL (8.8-10.5); CREATININE 2.18 mg/dL (0.60-1.30); POTASSIUM 5.4 mmol/L (3.5-5.1)
[2017-03-23 22:54] LABS: ALBUMIN 3.2 g/dL (3.4-5.0); BILIRUBIN,TOTAL 0.2 mg/dL (0.1-1.0); TOTAL PROTEIN, SERUM 7.1 g/dL (6.4-8.2)
[2017-03-24] MEDS ORDERED: HYDROmorphone 2 MG/ML SYRINGE IVP ONE ×3 (01:45→04:30)
[2017-03-24] MEDS ORDERED: ONDANSETRON HCL 4 MG/2 ML VIAL IVP ONE (01:45)
[2017-03-24] MEDS ORDERED: BARIUM SULFATE 0.1% SUSPENSION 450 ML BOTTLE PO ONE (01:45)
[2017-03-24 04:14] LABS: APPEARANCE,URINE CLEAR (CLEAR); GLUCOSE, URINE (UA) NEGATIVE (NEGATIVE); KETONES,URINE NEGATIVE (NEGATIVE); LEUKOCYTE ESTERASE ,URINE NEGATIVE (NEGATIVE); OCCULT BLOOD,URINE NEGATIVE (NEGATIVE); PH,URINE 5.5 (5.0-8.0); PROTEIN,URINE NEGATIVE (NEGATIVE)
[2017-03-24 04:16] LABS: ADD UA MICROSCOPIC NO
[2017-03-24] MEDS ORDERED: SODIUM POLYSTYRENE SULFONATE 15 GM/60 ML SUSPENSION BOTTLE PO ONE (04:30)
[2017-03-24] MEDS ORDERED: ONDANSETRON HCL 4 MG/2 ML VIAL IVP PRN (04:30)
[2017-03-24] MEDS ORDERED: HYDROmorphone 2 MG/ML SYRINGE IVP PRN (04:30)
[2017-03-24] MEDS ORDERED: 0.9% SODIUM CHLORIDE 10 ML SYRINGE IVP PRN (04:30)
[2017-03-24] MEDS ORDERED: FUROSEMIDE 40 MG/4 ML VIAL IVP ONE (04:30)
[2017-03-24] MEDS ORDERED: ACETAMINOPHEN 325 MG TABLET PO PRN ×2 (04:30→05:00)
[2017-03-24] MEDS ORDERED: ALBUTEROL SULFATE 2.5 MG/0.5 ML NEB SOLUTION NEB PRN (05:00)
[2017-03-24] MEDS ORDERED: BISACODYL 10 MG RECTAL RECTAL SUPPOSITORY PR PRN (05:00)
[2017-03-24] MEDS ORDERED: DEXTROSE 50%-WATER 25 GM/50 ML SYRINGE IVP PRN (05:00)
[2017-03-24] MEDS ORDERED: IPRATROPIUM BROMIDE 0.5 MG/2.5 ML NEB SOLUTION NEB PRN (05:00)
[2017-03-24] MEDS ORDERED: ZOLPIDEM TARTRATE 5 MG TABLET PO PRN (05:00)
[2017-03-24] MEDS ORDERED: MAGNESIUM HYDROXIDE SUSPENSION 30 ML UDCUP PO PRN (05:00)
[2017-03-24 07:36] LABS: GLUCOSE,POINT OF CARE 367 MG/DL (70-110)
[2017-03-24] MEDS: ONDANSETRON HCL 4 MG/2 ML VIAL IVP PRN ×2 (07:36→13:31)
[2017-03-24] MEDS: INSULIN ASPART 100 UNITS/ML SQ PRN (07:37)
[2017-03-24 08:25] VITALS: BP 105/68
[2017-03-24 08:52] LABS: GLUCOSE,POINT OF CARE 373 MG/DL (70-110)
[2017-03-24] MEDS ORDERED: HEPARIN SODIUM,PORCINE 5,000 UNITS/ML VIAL SQ SCH (09:00)
[2017-03-24] MEDS ORDERED: AmLODIPine BESYLATE 5 MG TABLET PO SCH (09:00)
[2017-03-24] MEDS: INSULIN HUMAN NPH-REGULAR 70/30 100 UNITS/ML SQ SCH ×2 (09:00→21:36)
[2017-03-24] MEDS: OxyCODONE HCL/ACETAMINOPHEN 5-325 MG TABLET PO PRN (09:04)
[2017-03-24] MEDS: PANTOPRAZOLE SODIUM 40 MG/VIAL IVP SCH (09:39)
[2017-03-24] MEDS: DOCUSATE SODIUM 100 MG CAPSULE PO SCH ×2 (09:39→21:10)
[2017-03-24] MEDS: GABAPENTIN 400 MG CAPSULE PO SCH ×3 (10:00→21:10)
[2017-03-24 10:27] LABS: GLUCOSE,POINT OF CARE 380 MG/DL (70-110)
[2017-03-24] MEDS: LOSARTAN POTASSIUM 50 MG TABLET PO SCH ×2 (10:56→21:10)
[2017-03-24] MEDS: APIXABAN 5 MG TABLET PO SCH ×2 (10:56→21:10)
[2017-03-24] MEDS: FLUoxetine HCL 20 MG CAPSULE PO SCH (10:56)
[2017-03-24] MEDS: CHOLECALCIFEROL (VIT D3) 1,000 UNITS TABLET PO SCH (10:56)
[2017-03-24] MEDS: FUROSEMIDE 40 MG TABLET PO SCH (10:57)
[2017-03-24 11:25] VITALS: BP 131/65
[2017-03-24 11:37] LABS: GLUCOSE,POINT OF CARE 429 MG/DL (70-110)
[2017-03-24 11:37] LABS: GLUCOSE,POINT OF CARE 391 MG/DL (70-110)
[2017-03-24 11:37] LABS: GLUCOSE,POINT OF CARE 391 MG/DL (70-110)
[2017-03-24 11:37] LABS: GLUCOSE,POINT OF CARE 418 MG/DL (70-110)
[2017-03-24 12:07] LABS: GLUCOSE,POINT OF CARE 394 MG/DL (70-110)
[2017-03-24 12:07] LABS: GLUCOSE,POINT OF CARE 387 MG/DL (70-110)
[2017-03-24 12:42] LABS: GLUCOSE,POINT OF CARE 384 MG/DL (70-110)
[2017-03-24] MEDS: HYDROmorphone 2 MG/ML SYRINGE IVP PRN ×2 (13:35→21:37)
[2017-03-24 16:05] LABS: BASOPHILS % (AUTO) 0.5 % (0.0-2.0); EOSINOPHILS % (AUTO) 5.3 % (1.0-6.0); HEMATOCRIT 31.2 % (36-46); HEMOGLOBIN 10.4 g/dL (12.0-16.0); LYMPHOCYTES # (AUTO) 2.5 K/uL (1.0-4.8); LYMPHOCYTES % (AUTO) 32.2 % (22.0-44.0); MEAN CORPUSCULAR HEMOGLOBIN 28.2 pg (26.0-34.0); MEAN CORPUSCULAR HGB CONC 33.4 G/dL (31.0-37.0); MEAN CORPUSCULAR VOLUME 84 fL (80-100); MONOCYTES # (AUTO) 0.7 K/uL (0.1-1.0); MONOCYTES % (AUTO) 8.9 % (2.0-9.0); NEUTROPHILS # (AUTO) 4.1 K/uL (1.8-7.7); NEUTROPHILS % (AUTO) 53.1 % (40.0-70.0); PLATELET COUNT (AUTO) 293 K/uL (150-450); WHITE BLOOD COUNT (AUTO) 7.8 K/uL (4.5-11.0)
[2017-03-24 16:07] VITALS: BP 109/58
[2017-03-24 16:34] LABS: CREATININE 2.61 mg/dL (0.60-1.30); HEMOGLOBIN A1C 9.2 % (4.5-6.2); POTASSIUM 4.7 mmol/L (3.5-5.1)
[2017-03-24 16:35] VITALS: BP 93/51
[2017-03-24 16:36] LABS: ALBUMIN 3.2 g/dL (3.4-5.0); BILIRUBIN,TOTAL 0.3 mg/dL (0.1-1.0)
[2017-03-24 17:22] LABS: GLUCOSE,POINT OF CARE 273 MG/DL (70-110)
[2017-03-24 17:22] LABS: GLUCOSE,POINT OF CARE 325 MG/DL (70-110)
[2017-03-24 17:22] LABS: GLUCOSE,POINT OF CARE 212 MG/DL (70-110)
[2017-03-24 17:22] LABS: GLUCOSE,POINT OF CARE 331 MG/DL (70-110)
[2017-03-24 17:22] LABS: GLUCOSE,POINT OF CARE 147 MG/DL (70-110)
[2017-03-24 19:12] LABS: GLUCOSE,POINT OF CARE 152 MG/DL (70-110)
[2017-03-24 20:26] VITALS: BP 125/69
[2017-03-24 21:22] LABS: GLUCOSE,POINT OF CARE 143 MG/DL (70-110)
[2017-03-25] VITALS (8 sets, daily range): BP systolic 100–159; BP diastolic 43–96
[2017-03-25] MEDS: OxyCODONE HCL/ACETAMINOPHEN 5-325 MG TABLET PO PRN ×3 (02:02→16:47)
[2017-03-25 05:07] LABS: GLUCOSE,POINT OF CARE 123 MG/DL (70-110)
[2017-03-25] MEDS: HYDROmorphone 2 MG/ML SYRINGE IVP PRN ×3 (05:34→20:56)
[2017-03-25 07:30] LABS: HEMOGLOBIN A1C 9.2 % (4.5-6.2)
[2017-03-25 07:32] LABS: BASOPHILS % (AUTO) 0.5 % (0.0-2.0); HEMATOCRIT 30.2 % (36-46); HEMOGLOBIN 10.3 g/dL (12.0-16.0); LYMPHOCYTES % (AUTO) 28.4 % (22.0-44.0); MEAN CORPUSCULAR HEMOGLOBIN 28.6 pg (26.0-34.0); MEAN CORPUSCULAR HGB CONC 33.9 G/dL (31.0-37.0); MEAN CORPUSCULAR VOLUME 84 fL (80-100); MONOCYTES # (AUTO) 0.6 K/uL (0.1-1.0); MONOCYTES % (AUTO) 8.1 % (2.0-9.0); PLATELET COUNT (AUTO) 253 K/uL (150-450); RED BLOOD CELL COUNT(AUTO) 3.59 MIL/uL (4.00-5.20); RED CELL DISTRIBUTION WIDTH 14.2 % (11.5-14.5)
[2017-03-25 07:44] LABS: CALCIUM, TOTAL 7.9 mg/dL (8.8-10.5); CREATININE 2.8 mg/dL (0.60-1.30); POTASSIUM 4.5 mmol/L (3.5-5.1)
[2017-03-25] MEDS: PANTOPRAZOLE SODIUM 40 MG/VIAL IVP SCH (08:43)
[2017-03-25] MEDS: LOSARTAN POTASSIUM 50 MG TABLET PO SCH (08:43)
[2017-03-25] MEDS: CHOLECALCIFEROL (VIT D3) 1,000 UNITS TABLET PO SCH (08:43)
[2017-03-25] MEDS: FUROSEMIDE 40 MG TABLET PO SCH (08:43)
[2017-03-25] MEDS: DOCUSATE SODIUM 100 MG CAPSULE PO SCH ×2 (08:43→22:00)
[2017-03-25] MEDS: GABAPENTIN 400 MG CAPSULE PO SCH ×3 (11:45→20:56)
[2017-03-25] MEDS: FLUoxetine HCL 20 MG CAPSULE PO SCH (11:45)
[2017-03-25] MEDS: INSULIN HUMAN NPH-REGULAR 70/30 100 UNITS/ML SQ SCH ×2 (12:00→22:02)
[2017-03-25] MEDS ORDERED: HydrALAZINE HCL 20 MG/ML VIAL IVP PRN (12:15)
[2017-03-25] MEDS: INSULIN ASPART 100 UNITS/ML SQ PRN ×2 (17:16→22:02)
[2017-03-25] MEDS: APIXABAN 2.5 MG TABLET PO SCH (22:00)
[2017-03-26] MEDS: OxyCODONE HCL/ACETAMINOPHEN 5-325 MG TABLET PO PRN ×2 (00:09→06:00)
[2017-03-26] MEDS: HYDROmorphone 2 MG/ML SYRINGE IVP PRN ×2 (04:19→11:59)
[2017-03-26 04:38] VITALS: BP 143/55
[2017-03-26] MEDS: INSULIN ASPART 100 UNITS/ML SQ PRN ×2 (06:12→12:01)
[2017-03-26 07:24] VITALS: BP 118/57
[2017-03-26] MEDS: PANTOPRAZOLE SODIUM 40 MG/VIAL IVP SCH (08:42)
[2017-03-26] MEDS: FLUoxetine HCL 20 MG CAPSULE PO SCH (08:43)
[2017-03-26] MEDS: APIXABAN 2.5 MG TABLET PO SCH (08:43)
[2017-03-26] MEDS: OXYGEN THERAPY IH SCH ×2 (08:43→08:51)
[2017-03-26] MEDS: DOCUSATE SODIUM 100 MG CAPSULE PO SCH (08:43)
[2017-03-26] MEDS: GABAPENTIN 400 MG CAPSULE PO SCH (08:43)
[2017-03-26] MEDS: CHOLECALCIFEROL (VIT D3) 1,000 UNITS TABLET PO SCH (08:43)
[2017-03-26] MEDS: INSULIN HUMAN NPH-REGULAR 70/30 100 UNITS/ML SQ SCH (08:50)
[2017-03-26 09:09] LABS: CALCIUM, TOTAL 8.4 mg/dL (8.8-10.5); CREATININE 2.33 mg/dL (0.60-1.30); POTASSIUM 4.4 mmol/L (3.5-5.1)
[2017-03-26] MEDS ORDERED: LIDOCAINE HCL 5% 36 GM OINTMENT TP SCH (10:30)
[2017-03-26] MEDS ORDERED: CYANOCOBALAMIN 1,000 MCG/ML VIAL IM ONE (10:30)
[2017-03-26] MEDS ORDERED: MethylPREDNISolone SOD SUCC 500 MG in SODIUM CHLORIDE 0.9% 50 ML IV ONE (11:00)
[2017-03-26 11:48] VITALS: BP 149/75
[2017-03-26 23:22] LABS: GLUCOSE COMMENT 1 Received Meds; GLUCOSE,POINT OF CARE 267 MG/DL (70-110)
[2017-03-26 23:22] LABS: GLUCOSE COMMENT 1 Received Meds; GLUCOSE,POINT OF CARE 362 MG/DL (70-110)
[2017-03-26 23:27] LABS: GLUCOSE COMMENT 1 Received Meds; GLUCOSE,POINT OF CARE 188 MG/DL (70-110)
[2017-03-26 23:27] LABS: GLUCOSE COMMENT 1 Received Meds; GLUCOSE,POINT OF CARE 317 MG/DL (70-110)
[2017-03-29 06:24] LABS: GLUCOSE,POINT OF CARE 128 MG/DL (70-110)
[2017-03-29 06:24] LABS: GLUCOSE,POINT OF CARE 188 MG/DL (70-110)
== END 2017-03-26 13:25 | disposition home or self-care (01) | DRG 48 ==
LOC: EMS 21:46 → AHU 03-24 07:32 → 5S 03-25 01:25
PROVIDERS: ADMIT Internal Medicine; ATTEND Internal Medicine
DX: E11.43 Type 2 diabetes mellitus with diabetic autonomic (poly)neuropathy (principal); N17.9 Acute kidney failure, unspecified; E44.0 Moderate protein-calorie malnutrition; E11.21 Type 2 diabetes mellitus with diabetic nephropathy; N18.3 Chronic kidney disease, stage 3 (moderate); I13.0 Hypertensive heart and chronic kidney disease with heart failure and stage 1 through stage 4 chronic kidney disease, or unspecified chronic kidney disease; I50.30 Unspecified diastolic (congestive) heart failure; K31.84 Gastroparesis; Z68.43 Body mass index [BMI] 50.0-59.9, adult; E11.22 Type 2 diabetes mellitus with diabetic chronic kidney disease; E11.65 Type 2 diabetes mellitus with hyperglycemia; E66.01 Morbid (severe) obesity due to excess calories; K21.9 Gastro-esophageal reflux disease without esophagitis; E78.5 Hyperlipidemia, unspecified; F41.8 Other specified anxiety disorders; I25.10 Atherosclerotic heart disease of native coronary artery without angina pectoris; J44.9 Chronic obstructive pulmonary disease, unspecified; G89.29 Other chronic pain; E87.5 Hyperkalemia; E55.9 Vitamin D deficiency, unspecified; D63.1 Anemia in chronic kidney disease; T39.395A Adverse effect of other nonsteroidal anti-inflammatory drugs [NSAID], initial encounter; M54.5 Low back pain; Z71.3 Dietary counseling and surveillance; Z79.899 Other long term (current) drug therapy; Z79.01 Long term (current) use of anticoagulants; Z90.49 Acquired absence of other specified parts of digestive tract; Z95.5 Presence of coronary angioplasty implant and graft; Z79.1 Long term (current) use of non-steroidal anti-inflammatories (NSAID); Z86.711 Personal history of pulmonary embolism; Z86.718 Personal history of other venous thrombosis and embolism; Z87.440 Personal history of urinary (tract) infections; Y93.89 Activity, other specified; Y92.89 Other specified places as the place of occurrence of the external cause; Y99.8 Other external cause status
CPT/HCPCS: 74176; 76770; 82570; 82962; 83036; 84156; 84300; 84540; 93005; 96372; 96374; 96375; 96376; 99285; C9113; J1170; J1644; J1815; J1940; J2405; J2930; J3420; J7050

== ENCOUNTER 2017-05-04 15:30 | Emergency (ER) | payer OTHER ==
[~2017-05-04] VITALS: Ht 167.6 cm; Wt 136.6 kg
[~2017-05-04 15:30] MED LIST changes: -APIX5TAB PO; -FERR-89 PO; -FURO40 PO; -LOSA50TA37 PO; -METO-325 PO; -PATI8.4P PO
[2017-05-04 16:13] LABS: BASOPHILS # (AUTO) 0.04 K/uL (0.00-0.20); BASOPHILS % (AUTO) 0.5 % (0.0-2.0); EOSINOPHILS # (AUTO) 0.46 K/uL (0.00-0.70); EOSINOPHILS % (AUTO) 5.56 % (1.0-6.0); HEMATOCRIT 33.8 % (36-46); HEMOGLOBIN 11.1 g/dL (12.0-16.0); LYMPHOCYTES # (AUTO) 2.6 K/uL (1.0-4.8); LYMPHOCYTES % (AUTO) 30.9 % (22.0-44.0); MEAN CORPUSCULAR HEMOGLOBIN 27.2 pg (26.0-34.0); MEAN CORPUSCULAR HGB CONC 32.8 G/dL (31.0-37.0); MEAN CORPUSCULAR VOLUME 83 fL (80-100); MONOCYTES # (AUTO) 0.7 K/uL (0.1-1.0); MONOCYTES % (AUTO) 8.3 % (2.0-9.0); NEUTROPHILS # (AUTO) 4.6 K/uL (1.8-7.7); NEUTROPHILS % (AUTO) 54.7 % (40.0-70.0); PLATELET COUNT (AUTO) 332 K/uL (150-450); RED BLOOD CELL COUNT(AUTO) 4.07 MIL/uL (4.00-5.20); RED CELL DISTRIBUTION WIDTH 14.5 % (11.5-14.5); WHITE BLOOD COUNT (AUTO) 8.4 K/uL (4.5-11.0)
[2017-05-04 16:29] LABS: CALCIUM, TOTAL 9.7 mg/dL (8.8-10.5); CREATININE 2.42 mg/dL (0.60-1.30); POTASSIUM 5.3 mmol/L (3.5-5.1)
[2017-05-04 16:35] LABS: ALBUMIN 3.4 g/dL (3.4-5.0); BILIRUBIN,TOTAL 0.4 mg/dL (0.1-1.0); TOTAL PROTEIN, SERUM 7.8 g/dL (6.4-8.2)
[2017-05-04 16:57] LABS: GLUCOSE,POINT OF CARE 92 MG/DL (70-110)
[2017-05-04 19:37] LABS: GLUCOSE,POINT OF CARE 113 MG/DL (70-110)
[2017-05-04] MEDS ORDERED: ACETAMINOPHEN 500 MG TABLET PO ONE (20:30)
[2017-05-04 20:50] VITALS: BP 120/60
== END 2017-05-04 20:49 | disposition home or self-care (01) ==
LOC: EMS 15:32
DX: R10.9 Unspecified abdominal pain (principal); E78.00 Pure hypercholesterolemia, unspecified; E11.9 Type 2 diabetes mellitus without complications; F32.9 Major depressive disorder, single episode, unspecified; F41.9 Anxiety disorder, unspecified; I25.10 Atherosclerotic heart disease of native coronary artery without angina pectoris; I50.9 Heart failure, unspecified; J44.9 Chronic obstructive pulmonary disease, unspecified; K21.9 Gastro-esophageal reflux disease without esophagitis; N83.209 Unspecified ovarian cyst, unspecified side; I13.0 Hypertensive heart and chronic kidney disease with heart failure and stage 1 through stage 4 chronic kidney disease, or unspecified chronic kidney disease; N18.9 Chronic kidney disease, unspecified; J45.909 Unspecified asthma, uncomplicated; E66.01 Morbid (severe) obesity due to excess calories; Z79.4 Long term (current) use of insulin; Z90.49 Acquired absence of other specified parts of digestive tract; Z90.89 Acquired absence of other organs
CPT/HCPCS: 74176; 82962; 99285

== ENCOUNTER 2017-05-19 21:52 | Emergency (ER) | payer OTHER ==
[~2017-05-19] VITALS: Ht 165.1 cm; Wt 159.0 kg
[2017-05-19 22:07] LABS: GLUCOSE,POINT OF CARE 101 MG/DL (70-110)
[2017-05-19 22:28] LABS: BASOPHILS % (AUTO) 0.7 % (0.0-2.0); EOSINOPHILS % (AUTO) 5.5 % (1.0-6.0); HEMATOCRIT 32.9 % (36-46); HEMOGLOBIN 10.9 g/dL (12.0-16.0); LYMPHOCYTES # (AUTO) 2.7 K/uL (1.0-4.8); LYMPHOCYTES % (AUTO) 31.4 % (22.0-44.0); MEAN CORPUSCULAR HEMOGLOBIN 27.4 pg (26.0-34.0); MEAN CORPUSCULAR HGB CONC 33.2 G/dL (31.0-37.0); MEAN CORPUSCULAR VOLUME 83 fL (80-100); MONOCYTES # (AUTO) 0.6 K/uL (0.1-1.0); NEUTROPHILS # (AUTO) 4.7 K/uL (1.8-7.7); NEUTROPHILS % (AUTO) 55.4 % (40.0-70.0); PLATELET COUNT (AUTO) 367 K/uL (150-450); RED BLOOD CELL COUNT(AUTO) 3.98 MIL/uL (4.00-5.20); RED CELL DISTRIBUTION WIDTH 14.3 % (11.5-14.5); WHITE BLOOD COUNT (AUTO) 8.6 K/uL (4.5-11.0)
[2017-05-19 22:42] LABS: CALCIUM, TOTAL 8.8 mg/dL (8.8-10.5); CREATININE 2.32 mg/dL (0.60-1.30); POTASSIUM 4.2 mmol/L (3.5-5.1)
[2017-05-19 22:48] LABS: ALBUMIN 3.3 g/dL (3.4-5.0); BILIRUBIN,TOTAL 0.2 mg/dL (0.1-1.0); TOTAL PROTEIN, SERUM 7.4 g/dL (6.4-8.2)
[2017-05-19] MEDS ORDERED: ATOR20TA86 PO (23:54)
[2017-05-19] MEDS ORDERED: APIX5TAB PO (23:54)
[2017-05-19] MEDS ORDERED: AMLO5TAB4 PO (23:54)
[2017-05-19] MEDS ORDERED: FEBU80TA PO (23:54)
[2017-05-20] MEDS ORDERED: SODIUM CHLORIDE 0.9% 1,000 ML IV ONE
[2017-05-20] MEDS ORDERED: ONDANSETRON HCL 4 MG/2 ML VIAL IVP ONE
[2017-05-20 01:12] LABS: GLUCOSE COMMENT 2 Doctor Notified; GLUCOSE,POINT OF CARE 63 MG/DL (70-110)
[2017-05-20 01:29] LABS: ADD UA MICROSCOPIC YES; APPEARANCE,URINE TURBID (CLEAR); GLUCOSE, URINE (UA) NEGATIVE (NEGATIVE); KETONES,URINE TRACE mg/dL (NEGATIVE); LEUKOCYTE ESTERASE ,URINE MODERATE (NEGATIVE); OCCULT BLOOD,URINE MODERATE (NEGATIVE); PROTEIN,URINE POS 1+ (NEGATIVE)
[2017-05-20 01:39] LABS: SQUAMOUS EPITHELIAL CELL,UR Many /LPF (None Seen)
[2017-05-20] MEDS ORDERED: BARIUM SULFATE 0.1% SUSPENSION 450 ML BOTTLE PO ONE (02:00)
[2017-05-20 02:32] LABS: GLUCOSE,POINT OF CARE 110 MG/DL (70-110)
[2017-05-20] MEDS ORDERED: HYDROmorphone 2 MG/ML SYRINGE IVP ONE ×2 (03:00)
[2017-05-20 04:14] VITALS: BP 112/70
== END 2017-05-20 04:30 | disposition home or self-care (01) ==
LOC: EMS 21:53
DX: E11.43 Type 2 diabetes mellitus with diabetic autonomic (poly)neuropathy (principal); K31.84 Gastroparesis; I13.0 Hypertensive heart and chronic kidney disease with heart failure and stage 1 through stage 4 chronic kidney disease, or unspecified chronic kidney disease; E11.22 Type 2 diabetes mellitus with diabetic chronic kidney disease; N18.9 Chronic kidney disease, unspecified; I50.9 Heart failure, unspecified; I25.10 Atherosclerotic heart disease of native coronary artery without angina pectoris; J44.9 Chronic obstructive pulmonary disease, unspecified; K21.9 Gastro-esophageal reflux disease without esophagitis; E78.00 Pure hypercholesterolemia, unspecified; E66.01 Morbid (severe) obesity due to excess calories; Z79.4 Long term (current) use of insulin; Z68.43 Body mass index [BMI] 50.0-59.9, adult
CPT/HCPCS: 36415; 71010; 74176; 80053; 81001; 82962; 84484; 85025; 87077; 87086; 87186; 93005; 96361; 96374; 96375; 96376; 99285; J1170 ×2; J2405; J7030; Z7610

== ENCOUNTER 2017-06-11 14:18 | Emergency (ER) | payer OTHER ==
[~2017-06-11] VITALS: Ht 167.6 cm; Wt 136.4 kg
[~2017-06-11 14:18] MED LIST changes: +AMLO5TAB4 PO; +APIX5TAB PO; +ATOR20TA86 PO; -DOCU-275 PO; +FEBU80TA PO; -HYDR-309 PO; -VITAD1000 PO
[2017-06-11 14:36] LABS: GLUCOSE,POINT OF CARE 494 MG/DL (70-110)
[2017-06-11 15:22] LABS: BASOPHILS % (AUTO) 0.3 % (0.0-2.0); EOSINOPHILS % (AUTO) 4.9 % (1.0-6.0); HEMATOCRIT 32.4 % (36-46); HEMOGLOBIN 10.7 g/dL (12.0-16.0); LYMPHOCYTES # (AUTO) 1.9 K/uL (1.0-4.8); LYMPHOCYTES % (AUTO) 24.5 % (22.0-44.0); MEAN CORPUSCULAR HEMOGLOBIN 27.4 pg (26.0-34.0); MEAN CORPUSCULAR HGB CONC 33.1 G/dL (31.0-37.0); MEAN CORPUSCULAR VOLUME 83 fL (80-100); MONOCYTES # (AUTO) 0.5 K/uL (0.1-1.0); MONOCYTES % (AUTO) 6.4 % (2.0-9.0); NEUTROPHILS % (AUTO) 63.9 % (40.0-70.0); PLATELET COUNT (AUTO) 285 K/uL (150-450); RED BLOOD CELL COUNT(AUTO) 3.91 MIL/uL (4.00-5.20); RED CELL DISTRIBUTION WIDTH 14.7 % (11.5-14.5); WHITE BLOOD COUNT (AUTO) 7.8 K/uL (4.5-11.0)
[2017-06-11 15:45] LABS: ALBUMIN 3.1 g/dL (3.4-5.0); BILIRUBIN,TOTAL 0.3 mg/dL (0.1-1.0); CALCIUM, TOTAL 8.1 mg/dL (8.8-10.5); CREATININE 1.8 mg/dL (0.60-1.30); POTASSIUM 5.8 mmol/L (3.5-5.1)
[2017-06-11] MEDS ORDERED: INSULIN REGULAR, HUMAN 100 UNITS/ML SQ ONE (16:00)
[2017-06-11 16:56] LABS: PROTHROMBIN TIME 10.1 SEC (9.4-11.6)
[2017-06-11 17:27] LABS: GLUCOSE,POINT OF CARE 535 MG/DL (70-110)
[2017-06-11] MEDS ORDERED: INSULIN REGULAR, HUMAN 100 UNITS/ML IVP ONE (17:30)
[2017-06-11] MEDS ORDERED: INSULIN HUMAN NPH-REGULAR 70/30 100 UNITS/ML SQ ONE (17:30)
[2017-06-11] MEDS ORDERED: SODIUM CHLORIDE 0.9% 1,000 ML IV ONE (17:30)
[2017-06-11 17:38] LABS: APPEARANCE,URINE CLEAR (CLEAR); GLUCOSE, URINE (UA) >=1000 mg/dL (NEGATIVE); KETONES,URINE NEGATIVE (NEGATIVE); LEUKOCYTE ESTERASE ,URINE NEGATIVE (NEGATIVE); OCCULT BLOOD,URINE NEGATIVE (NEGATIVE); PH,URINE 5.5 (5.0-8.0); PROTEIN,URINE NEGATIVE (NEGATIVE)
[2017-06-11 17:42] LABS: ADD UA MICROSCOPIC YES
[2017-06-11] MEDS ORDERED: SUCCINYLCHOLINE CHLORIDE 20 MG/ML 10 ML VIAL ONE (17:46)
[2017-06-11] MEDS ORDERED: RAPID SEQUENCE KIT [RSI] 1 EACH KIT ONE ×2 (17:46)
[2017-06-11] MEDS ORDERED: ACETAMINOPHEN 1000 MG/ISO-OSM 100 ML IV ONE (18:00)
[2017-06-11] MEDS ORDERED: CYCLOBENZAPRINE HCL 10 MG TABLET PO ONE (18:00)
[2017-06-11 18:18] LABS: SQUAMOUS EPITHELIAL CELL,UR Few /LPF (None Seen)
[2017-06-11 18:19] LABS: RBC,URINE 0-2 /HPF (0-2); WBC,URINE 0-2 /HPF (0-5)
[2017-06-11 18:30] VITALS: BP 136/61
[2017-06-11 18:36] LABS: GLUCOSE,POINT OF CARE 362 MG/DL (70-110)
== END 2017-06-11 18:53 | disposition home or self-care (01) ==
LOC: EMS 14:20
DX: N28.9 Disorder of kidney and ureter, unspecified (principal); E66.01 Morbid (severe) obesity due to excess calories; F32.9 Major depressive disorder, single episode, unspecified; F41.9 Anxiety disorder, unspecified; I10 Essential (primary) hypertension; I25.10 Atherosclerotic heart disease of native coronary artery without angina pectoris; J44.9 Chronic obstructive pulmonary disease, unspecified; K21.9 Gastro-esophageal reflux disease without esophagitis; N83.209 Unspecified ovarian cyst, unspecified side; Z68.42 Body mass index [BMI] 45.0-49.9, adult; Z79.01 Long term (current) use of anticoagulants; Z79.4 Long term (current) use of insulin
CPT/HCPCS: 36415; 80053; 81001; 82962; 85025; 85610; 85730; 96365; 96372; 96375; 99284; J0131; J0330; J1815; J7030; Z7610

== ENCOUNTER 2017-06-26 20:48 | Emergency (ER) | payer OTHER ==
[~2017-06-26] VITALS: Ht 167.6 cm; Wt 136.4 kg
[~2017-06-26 20:48] MED LIST changes: -AMLO-511 PO
[2017-06-26] MEDS ORDERED: PATI8.4P PO (20:58)
[2017-06-26 21:02] LABS: GLUCOSE,POINT OF CARE 220 MG/DL (70-110)
[2017-06-26] MEDS ORDERED: MORPHINE SULFATE 4 MG/ML SYRINGE IM ONE (22:30)
[2017-06-26] MEDS ORDERED: ONDANSETRON HCL 4 MG/2 ML VIAL IM ONE (22:30)
[2017-06-26 22:37] LABS: BASOPHILS # (AUTO) 0.06 K/uL (0.00-0.20); BASOPHILS % (AUTO) 0.6 % (0.0-2.0); EOSINOPHILS # (AUTO) 0.47 K/uL (0.00-0.70); EOSINOPHILS % (AUTO) 4.79 % (1.0-6.0); HEMATOCRIT 31.1 % (36-46); HEMOGLOBIN 10.3 g/dL (12.0-16.0); LYMPHOCYTES # (AUTO) 2.4 K/uL (1.0-4.8); LYMPHOCYTES % (AUTO) 24.4 % (22.0-44.0); MEAN CORPUSCULAR HEMOGLOBIN 27.4 pg (26.0-34.0); MEAN CORPUSCULAR VOLUME 83 fL (80-100); MONOCYTES # (AUTO) 0.8 K/uL (0.1-1.0); MONOCYTES % (AUTO) 8.2 % (2.0-9.0); NEUTROPHILS # (AUTO) 6.1 K/uL (1.8-7.7); NEUTROPHILS % (AUTO) 62.1 % (40.0-70.0); PLATELET COUNT (AUTO) 320 K/uL (150-450); RED BLOOD CELL COUNT(AUTO) 3.76 MIL/uL (4.00-5.20); RED CELL DISTRIBUTION WIDTH 15.8 % (11.5-14.5); WHITE BLOOD COUNT (AUTO) 9.9 K/uL (4.5-11.0)
[2017-06-26 22:38] LABS: APPEARANCE,URINE CLOUDY (CLEAR); GLUCOSE, URINE (UA) NEGATIVE (NEGATIVE); KETONES,URINE NEGATIVE (NEGATIVE); LEUKOCYTE ESTERASE ,URINE MODERATE (NEGATIVE); OCCULT BLOOD,URINE NEGATIVE (NEGATIVE); PROTEIN,URINE NEGATIVE (NEGATIVE)
[2017-06-26 22:40] LABS: CALCIUM, TOTAL 8.7 mg/dL (8.8-10.5); CREATININE 1.77 mg/dL (0.60-1.30)
[2017-06-26 22:45] LABS: ALBUMIN 3.3 g/dL (3.4-5.0); BILIRUBIN,TOTAL 0.2 mg/dL (0.1-1.0); INR 0.9 (0.9-1.1); TOTAL PROTEIN, SERUM 7.5 g/dL (6.4-8.2)
[2017-06-26 22:45] LABS: COARSE GRANULAR CASTS,URINE 0-2 /LPF (None Seen); SQUAMOUS EPITHELIAL CELL,UR Many /LPF (None Seen)
[2017-06-26 22:46] LABS: RBC,URINE 0-2 /HPF (0-2)
[2017-06-27 00:42] VITALS: BP 138/72
== END 2017-06-27 00:43 | disposition home or self-care (01) ==
LOC: EMS 20:49
DX: N39.0 Urinary tract infection, site not specified (principal); G89.29 Other chronic pain; M54.5 Low back pain; I25.10 Atherosclerotic heart disease of native coronary artery without angina pectoris; I11.0 Hypertensive heart disease with heart failure; I50.9 Heart failure, unspecified; J44.9 Chronic obstructive pulmonary disease, unspecified; K21.9 Gastro-esophageal reflux disease without esophagitis; E11.9 Type 2 diabetes mellitus without complications
CPT/HCPCS: 36415; 74176; 80053; 80307; 81001; 82962; 85025; 85610; 85730; 87077; 87086; 87186; 96372; 99285; J2270; J2405

== ENCOUNTER 2017-08-12 20:54 | Emergency (ER) | payer OTHER ==
[~2017-08-12] VITALS: Ht 167.6 cm; Wt 136.0 kg
[~2017-08-12 20:54] MED LIST changes: +PATI8.4P PO
[2017-08-12 21:22] LABS: GLUCOSE,POINT OF CARE 278 MG/DL (70-110)
[2017-08-12] MEDS ORDERED: KETOROLAC TROMETHAMINE 30 MG/ML VIAL IVP ONE (21:30)
[2017-08-12] MEDS ORDERED: DiphenhydrAMINE HCL 50 MG/ML VIAL IVP ONE (21:30)
[2017-08-12] MEDS ORDERED: METOCLOPRAMIDE HCL 5 MG/ML 2 ML VIAL IM ONE (21:30)
[2017-08-12 22:01] LABS: BASOPHILS # (AUTO) 0.04 K/uL (0.00-0.20); BASOPHILS % (AUTO) 0.6 % (0.0-2.0); EOSINOPHILS # (AUTO) 0.33 K/uL (0.00-0.70); EOSINOPHILS % (AUTO) 4.11 % (1.0-6.0); HEMATOCRIT 35.8 % (36-46); HEMOGLOBIN 11.9 g/dL (12.0-16.0); LYMPHOCYTES # (AUTO) 2.2 K/uL (1.0-4.8); LYMPHOCYTES % (AUTO) 27.5 % (22.0-44.0); MEAN CORPUSCULAR HEMOGLOBIN 29.5 pg (26.0-34.0); MEAN CORPUSCULAR HGB CONC 33.3 G/dL (31.0-37.0); MEAN CORPUSCULAR VOLUME 88 fL (80-100); MONOCYTES # (AUTO) 0.6 K/uL (0.1-1.0); MONOCYTES % (AUTO) 7.2 % (2.0-9.0); NEUTROPHILS # (AUTO) 4.8 K/uL (1.8-7.7); NEUTROPHILS % (AUTO) 60.6 % (40.0-70.0); PLATELET COUNT (AUTO) 276 K/uL (150-450); RED BLOOD CELL COUNT(AUTO) 4.05 MIL/uL (4.00-5.20); RED CELL DISTRIBUTION WIDTH 17.8 % (11.5-14.5); WHITE BLOOD COUNT (AUTO) 7.9 K/uL (4.5-11.0)
[2017-08-12 22:10] LABS: ANION GAP 8 mmol/L (8-16); CALCIUM, TOTAL 8.7 mg/dL (8.8-10.5); CARBON DIOXIDE 24 mmol/L (22-29); CHLORIDE 100 mmol/L (98-107); CREATININE 2.23 mg/dL (0.60-1.30); GLOMERULAR FILTR. RATE CALC 23 mL/min (>60); POTASSIUM 4.6 mmol/L (3.5-5.1); SODIUM SERUM 132 mmol/L (136-145); UREA NITROGEN, BLOOD 51 mg/dL (7-18)
[2017-08-12 22:16] LABS: ALANINE AMINOTRANSFERASE 24 U/L (12-78); ALBUMIN 3.2 g/dL (3.4-5.0); ASPARTATE AMINOTRANSFERASE 12 U/L (15-37); BILIRUBIN,TOTAL 0.3 mg/dL (0.1-1.0); CREATINE KINASE, TOTAL 47 U/L (26-192); TOTAL PROTEIN, SERUM 7.1 g/dL (6.4-8.2)
[2017-08-12 22:19] LABS: B-TYPE NATRIURETIC PEPTIDE 48 pg/mL (0-100)
[2017-08-12 23:00] LABS: APPEARANCE,URINE CLOUDY (CLEAR); GLUCOSE, URINE (UA) NEGATIVE (NEGATIVE); KETONES,URINE TRACE mg/dL (NEGATIVE); LEUKOCYTE ESTERASE ,URINE SMALL (NEGATIVE); OCCULT BLOOD,URINE NEGATIVE (NEGATIVE); PROTEIN,URINE NEGATIVE (NEGATIVE)
[2017-08-12 23:08] LABS: ADD UA MICROSCOPIC YES
[2017-08-12 23:23] LABS: RBC,URINE 0-2 /HPF (0-2); SQUAMOUS EPITHELIAL CELL,UR Moderate /LPF (None Seen)
[2017-08-12 23:51] VITALS: BP 117/62
== END 2017-08-12 23:54 | disposition home or self-care (01) ==
LOC: EMS 20:57
DX: R07.89 Other chest pain (principal); R51 Headache; I11.0 Hypertensive heart disease with heart failure; I50.9 Heart failure, unspecified; I25.10 Atherosclerotic heart disease of native coronary artery without angina pectoris; E11.9 Type 2 diabetes mellitus without complications; K21.9 Gastro-esophageal reflux disease without esophagitis; J44.9 Chronic obstructive pulmonary disease, unspecified; E78.00 Pure hypercholesterolemia, unspecified; E66.01 Morbid (severe) obesity due to excess calories; G89.29 Other chronic pain; Z68.42 Body mass index [BMI] 45.0-49.9, adult; Z79.4 Long term (current) use of insulin
CPT/HCPCS: 36415; 70450; 71010; 80053; 81001; 82550; 82962; 83880; 84484; 85025; 85730; 93005; 96372; 96374; 96375; 99285; J1200; J1885; J2765

== ENCOUNTER 2017-11-05 13:22 | Emergency (ER) | payer OTHER ==
[~2017-11-05] VITALS: Ht 165.1 cm; Wt 136.4 kg
[2017-11-05 13:52] LABS: GLUCOSE,POINT OF CARE 231 MG/DL (70-110)
[2017-11-05 15:54] LABS: BASOPHILS % (AUTO) 0.8 % (0.0-2.0); EOSINOPHILS % (AUTO) 4.3 % (1.0-6.0); HEMOGLOBIN 12.6 g/dL (12.0-16.0); LYMPHOCYTES # (AUTO) 2.3 K/uL (1.0-4.8); LYMPHOCYTES % (AUTO) 23.9 % (22.0-44.0); MEAN CORPUSCULAR HEMOGLOBIN 29.9 pg (26.0-34.0); MEAN CORPUSCULAR VOLUME 88 fL (80-100); MONOCYTES # (AUTO) 0.6 K/uL (0.1-1.0); MONOCYTES % (AUTO) 6.6 % (2.0-9.0); NEUTROPHILS # (AUTO) 6.1 K/uL (1.8-7.7); NEUTROPHILS % (AUTO) 64.4 % (40.0-70.0); PLATELET COUNT (AUTO) 314 K/uL (150-450); RED CELL DISTRIBUTION WIDTH 12.9 % (11.5-14.5)
[2017-11-05 16:04] LABS: ANION GAP 10 mmol/L (8-16); CALCIUM, TOTAL 8.9 mg/dL (8.8-10.5); CARBON DIOXIDE 29 mmol/L (22-29); CHLORIDE 101 mmol/L (98-107); CREATININE 1.72 mg/dL (0.60-1.30); GLOMERULAR FILTR. RATE CALC 31 mL/min (>60); GLUCOSE,RANDOM 199 mg/dL (70-110); POTASSIUM 4.9 mmol/L (3.5-5.1); SODIUM SERUM 140 mmol/L (136-145); UREA NITROGEN, BLOOD 41 mg/dL (7-18)
[2017-11-05 16:11] LABS: ALANINE AMINOTRANSFERASE 37 U/L (12-78); ALBUMIN 3.3 g/dL (3.4-5.0); ALKALINE PHOSPHATASE 76 U/L (46-116); ASPARTATE AMINOTRANSFERASE 23 U/L (15-37); BILIRUBIN,TOTAL 0.4 mg/dL (0.1-1.0); CREATINE KINASE, TOTAL 57 U/L (26-192); TOTAL PROTEIN, SERUM 7.4 g/dL (6.4-8.2)
[2017-11-05 16:18] LABS: D-DIMER 0.2 mg/L FEU (0.00-0.50); INR 0.9 (0.9-1.1); PROTHROMBIN TIME 9.8 SEC (9.4-11.6)
[2017-11-05 16:39] LABS: B-TYPE NATRIURETIC PEPTIDE 43 pg/mL (0-100)
[2017-11-05] MEDS ORDERED: HYDROCODONE/ACETAMINOPHEN 5-325 MG TABLET PO ONE (16:45)
[2017-11-05 17:15] VITALS: BP 112/87
== END 2017-11-05 18:14 | disposition home or self-care (01) ==
LOC: EMS 13:24
DX: R07.89 Other chest pain (principal); G89.29 Other chronic pain; I11.0 Hypertensive heart disease with heart failure; I50.9 Heart failure, unspecified; I25.10 Atherosclerotic heart disease of native coronary artery without angina pectoris; J44.9 Chronic obstructive pulmonary disease, unspecified; E11.9 Type 2 diabetes mellitus without complications; E78.00 Pure hypercholesterolemia, unspecified; K21.9 Gastro-esophageal reflux disease without esophagitis; Z86.711 Personal history of pulmonary embolism; Z79.01 Long term (current) use of anticoagulants; Z79.4 Long term (current) use of insulin
CPT/HCPCS: 82962; 85379; 93005; 93970; 99285

== ENCOUNTER 2017-12-13 14:26 | Emergency (ER) | payer OTHER ==
[~2017-12-13] VITALS: Ht 167.6 cm; Wt 145.4 kg
[2017-12-13 14:43] LABS: GLUCOSE,POINT OF CARE 286 MG/DL (70-110)
[2017-12-13] MEDS ORDERED: OxyCODONE HCL/ACETAMINOPHEN 5-325 MG TABLET PO ONE ×2 (15:30→18:30)
[2017-12-13 15:41] LABS: BASOPHILS % (AUTO) 0.9 % (0.0-2.0); EOSINOPHILS % (AUTO) 4.7 % (1.0-6.0); HEMATOCRIT 38.5 % (36-46); HEMOGLOBIN 13.1 g/dL (12.0-16.0); LYMPHOCYTES # (AUTO) 2.6 K/uL (1.0-4.8); LYMPHOCYTES % (AUTO) 27.2 % (22.0-44.0); MEAN CORPUSCULAR HEMOGLOBIN 30.3 pg (26.0-34.0); MEAN CORPUSCULAR VOLUME 89 fL (80-100); MONOCYTES # (AUTO) 0.6 K/uL (0.1-1.0); MONOCYTES % (AUTO) 6.7 % (2.0-9.0); NEUTROPHILS # (AUTO) 5.9 K/uL (1.8-7.7); NEUTROPHILS % (AUTO) 60.5 % (40.0-70.0); PLATELET COUNT (AUTO) 347 K/uL (150-450); RED BLOOD CELL COUNT(AUTO) 4.31 MIL/uL (4.00-5.20); RED CELL DISTRIBUTION WIDTH 13.3 % (11.5-14.5)
[2017-12-13 15:54] LABS: CALCIUM, TOTAL 8.9 mg/dL (8.8-10.5); CREATININE 2.68 mg/dL (0.60-1.30); POTASSIUM 4.8 mmol/L (3.5-5.1)
[2017-12-13 15:59] LABS: ALBUMIN 3.6 g/dL (3.4-5.0); BILIRUBIN,TOTAL 0.4 mg/dL (0.1-1.0); TOTAL PROTEIN, SERUM 7.7 g/dL (6.4-8.2)
[2017-12-13 16:04] LABS: D-DIMER 0.17 mg/L FEU (0.00-0.50); INR 0.9 (0.9-1.1); PROTHROMBIN TIME 9.8 SEC (9.4-11.6)
[2017-12-13] MEDS ORDERED: SODIUM CHLORIDE 0.9% 500 ML IV ONE (18:30)
[2017-12-13 18:42] LABS: GLUCOSE,POINT OF CARE 410 MG/DL (70-110)
[2017-12-13] MEDS ORDERED: INSULIN REGULAR, HUMAN 100 UNITS/ML IVP ONE (18:45)
[2017-12-13 19:33] LABS: GLUCOSE,POINT OF CARE 261 MG/DL (70-110)
[2017-12-13 19:41] VITALS: BP 118/64
== END 2017-12-13 19:46 | disposition home or self-care (01) ==
LOC: EMS 14:28
DX: M51.37 Other intervertebral disc degeneration, lumbosacral region (principal); N28.9 Disorder of kidney and ureter, unspecified; E11.65 Type 2 diabetes mellitus with hyperglycemia; F41.9 Anxiety disorder, unspecified; J44.9 Chronic obstructive pulmonary disease, unspecified; E78.00 Pure hypercholesterolemia, unspecified; I11.0 Hypertensive heart disease with heart failure; I50.9 Heart failure, unspecified; F32.9 Major depressive disorder, single episode, unspecified
CPT/HCPCS: 36415; 71045; 72131; 72192; 80053; 82962; 84484; 85025; 85379; 85610; 85730; 93005; 96361; 96374; 99285; J1815; J7040

== ENCOUNTER 2018-02-17 20:22 | Emergency (ER) | payer OTHER ==
[~2018-02-17] VITALS: Ht 167.6 cm; Wt 150.0 kg
[2018-02-17 20:38] LABS: GLUCOSE,POINT OF CARE 137 MG/DL (70-110)
[2018-02-17 20:55] LABS: BASOPHILS % (AUTO) 0.8 % (0.0-2.0); EOSINOPHILS % (AUTO) 1.9 % (1.0-6.0); HEMATOCRIT 32.9 % (36-46); HEMOGLOBIN 11.2 g/dL (12.0-16.0); LYMPHOCYTES # (AUTO) 2.4 K/uL (1.0-4.8); LYMPHOCYTES % (AUTO) 21.5 % (22.0-44.0); MEAN CORPUSCULAR HEMOGLOBIN 29.6 pg (26.0-34.0); MEAN CORPUSCULAR VOLUME 87 fL (80-100); MONOCYTES % (AUTO) 8.4 % (2.0-9.0); NEUTROPHILS # (AUTO) 7.6 K/uL (1.8-7.7); NEUTROPHILS % (AUTO) 67.4 % (40.0-70.0); PLATELET COUNT (AUTO) 319 K/uL (150-450); RED BLOOD CELL COUNT(AUTO) 3.79 MIL/uL (4.00-5.20); RED CELL DISTRIBUTION WIDTH 13.4 % (11.5-14.5)
[2018-02-17 21:10] LABS: CALCIUM, TOTAL 8.8 mg/dL (8.8-10.5); CREATININE 2.09 mg/dL (0.60-1.30)
[2018-02-17 21:12] LABS: ALBUMIN 3.2 g/dL (3.4-5.0); BILIRUBIN,TOTAL 0.4 mg/dL (0.1-1.0); TOTAL PROTEIN, SERUM 7.4 g/dL (6.4-8.2)
[2018-02-17] MEDS ORDERED: HALOPERIDOL LACTATE 5 MG/ML VIAL IM ONE (23:15)
[2018-02-17 23:58] VITALS: BP 130/64
[2018-02-18 00:16] LABS: APPEARANCE,URINE CLOUDY (CLEAR); BILIRUBIN,URINE PRELIM. POSITIVE (NEGATIVE); GLUCOSE, URINE (UA) NEGATIVE (NEGATIVE); KETONES,URINE 15 mg/dL (NEGATIVE); LEUKOCYTE ESTERASE ,URINE NEGATIVE (NEGATIVE); NITRATE,URINE NEGATIVE (NEGATIVE); OCCULT BLOOD,URINE NEGATIVE (NEGATIVE); PROTEIN,URINE TRACE (NEGATIVE); UROBILINOGEN,URINE 0.2 mg/dL (<=1.0)
== END 2018-02-18 00:40 | disposition home or self-care (01) ==
LOC: EMS 20:24
DX: R10.11 Right upper quadrant pain (principal); E66.01 Morbid (severe) obesity due to excess calories; I11.0 Hypertensive heart disease with heart failure; I50.9 Heart failure, unspecified; I25.10 Atherosclerotic heart disease of native coronary artery without angina pectoris; K21.9 Gastro-esophageal reflux disease without esophagitis; E78.00 Pure hypercholesterolemia, unspecified; J44.9 Chronic obstructive pulmonary disease, unspecified; G89.29 Other chronic pain; E11.9 Type 2 diabetes mellitus without complications; Z68.43 Body mass index [BMI] 50.0-59.9, adult; Z79.4 Long term (current) use of insulin
CPT/HCPCS: 36415; 80053; 81003; 82962; 83690; 84484; 85025; 93005; 96372; 99285; J1630

== ENCOUNTER 2018-03-18 16:02 | Emergency (ER) | payer OTHER ==
[~2018-03-18] VITALS: Ht 167.6 cm; Wt 145.4 kg
[2018-03-18 16:33] LABS: GLUCOSE,POINT OF CARE 183 MG/DL (70-110)
[2018-03-18] MEDS ORDERED: ALBUTEROL SULFATE 2.5 MG/0.5 ML NEB SOLUTION NEB ONE (17:15)
[2018-03-18] MEDS ORDERED: OxyCODONE HCL/ACETAMINOPHEN 5-325 MG TABLET PO ONE (17:15)
[2018-03-18] MEDS ORDERED: MethylPREDNISolone SOD SUCC 125 MG/2 ML VIAL IM ONE (17:15)
[2018-03-18] MEDS ORDERED: IPRATROPIUM BROMIDE 0.5 MG/2.5 ML NEB SOLUTION NEB ONE (17:15)
[2018-03-18 17:30] LABS: BASOPHILS % (AUTO) 1.1 % (0.0-2.0); HEMOGLOBIN 12.3 g/dL (12.0-16.0); LYMPHOCYTES # (AUTO) 2.5 K/uL (1.0-4.8); LYMPHOCYTES % (AUTO) 27.8 % (22.0-44.0); MEAN CORPUSCULAR HEMOGLOBIN 29.6 pg (26.0-34.0); MEAN CORPUSCULAR HGB CONC 34.3 G/dL (31.0-37.0); MEAN CORPUSCULAR VOLUME 87 fL (80-100); MONOCYTES # (AUTO) 0.6 K/uL (0.1-1.0); MONOCYTES % (AUTO) 7.1 % (2.0-9.0); NEUTROPHILS # (AUTO) 5.3 K/uL (1.8-7.7); PLATELET COUNT (AUTO) 357 K/uL (150-450); RED BLOOD CELL COUNT(AUTO) 4.16 MIL/uL (4.00-5.20)
[2018-03-18 17:45] LABS: ANION GAP 12 mmol/L (8-16); CALCIUM, TOTAL 8.9 mg/dL (8.8-10.5); CARBON DIOXIDE 28 mmol/L (22-29); CHLORIDE 99 mmol/L (98-107); CREATININE 2.31 mg/dL (0.60-1.30); GLOMERULAR FILTR. RATE CALC 22 mL/min (>60); GLUCOSE,RANDOM 140 mg/dL (70-110); POTASSIUM 4.4 mmol/L (3.5-5.1); SODIUM SERUM 139 mmol/L (136-145); UREA NITROGEN, BLOOD 51 mg/dL (7-18)
[2018-03-18] MEDS ORDERED: MethylPREDNISolone SOD SUCC 125 MG/2 ML VIAL IVP ONE (17:45)
[2018-03-18 17:51] LABS: ALANINE AMINOTRANSFERASE 27 U/L (12-78); ALBUMIN 3.4 g/dL (3.4-5.0); ALKALINE PHOSPHATASE 85 U/L (46-116); ASPARTATE AMINOTRANSFERASE 17 U/L (15-37); BILIRUBIN,TOTAL 0.3 mg/dL (0.1-1.0); TOTAL PROTEIN, SERUM 7.9 g/dL (6.4-8.2)
[2018-03-18 17:52] VITALS: BP 98/64
[2018-03-18 18:07] LABS: LACTIC ACID 2.1 mmol/L (0.4-2.0)
[2018-03-18 18:11] LABS: B-TYPE NATRIURETIC PEPTIDE 25 pg/mL (0-100)
[2018-03-18] MEDS ORDERED: OXYGEN THERAPY IH SCH (20:00)
== END 2018-03-18 18:30 | disposition home or self-care (01) ==
LOC: EMS 16:04
DX: J20.9 Acute bronchitis, unspecified (principal); E11.65 Type 2 diabetes mellitus with hyperglycemia; I13.0 Hypertensive heart and chronic kidney disease with heart failure and stage 1 through stage 4 chronic kidney disease, or unspecified chronic kidney disease; E11.22 Type 2 diabetes mellitus with diabetic chronic kidney disease; N18.9 Chronic kidney disease, unspecified; I50.9 Heart failure, unspecified; J44.9 Chronic obstructive pulmonary disease, unspecified; I25.10 Atherosclerotic heart disease of native coronary artery without angina pectoris; K21.9 Gastro-esophageal reflux disease without esophagitis; E78.00 Pure hypercholesterolemia, unspecified; G89.29 Other chronic pain; E66.01 Morbid (severe) obesity due to excess calories; Z79.4 Long term (current) use of insulin; Z68.43 Body mass index [BMI] 50.0-59.9, adult
CPT/HCPCS: 36415; 71045; 80053; 82962; 83605; 83880; 84484; 85025; 87040; 93005; 94640; 96374; 99285; J2930; J7613

== ENCOUNTER 2018-04-28 18:19 | Emergency (ER) | payer OTHER ==
[~2018-04-28] VITALS: Ht 167.6 cm; Wt 159.1 kg
[2018-04-28 20:21] VITALS: BP 126/60
[2018-04-28] MEDS ORDERED: OxyCODONE HCL/ACETAMINOPHEN 5-325 MG TABLET PO ONE (20:30)
== END 2018-04-28 20:31 | disposition home or self-care (01) ==
LOC: EMS 18:20
DX: M17.11 Unilateral primary osteoarthritis, right knee (principal); I25.10 Atherosclerotic heart disease of native coronary artery without angina pectoris; G89.29 Other chronic pain; I11.0 Hypertensive heart disease with heart failure; I50.9 Heart failure, unspecified; J44.9 Chronic obstructive pulmonary disease, unspecified; E11.9 Type 2 diabetes mellitus without complications; K21.9 Gastro-esophageal reflux disease without esophagitis; E78.00 Pure hypercholesterolemia, unspecified; E66.01 Morbid (severe) obesity due to excess calories; Z68.43 Body mass index [BMI] 50.0-59.9, adult; Z79.4 Long term (current) use of insulin; W06.XXXA Fall from bed, initial encounter; Y93.89 Activity, other specified; Y92.89 Other specified places as the place of occurrence of the external cause; Y99.8 Other external cause status
CPT/HCPCS: 70450; 73502; 99284

== ENCOUNTER 2018-05-26 16:15 | Emergency (ER) | payer OTHER ==
[~2018-05-26] VITALS: Ht 165.1 cm; Wt 154.6 kg
[2018-05-26 16:29] LABS: GLUCOSE,POINT OF CARE 251 MG/DL (70-110)
[2018-05-26] MEDS ORDERED: PredniSONE 20 MG TABLET PO ONE (17:45)
[2018-05-26] MEDS ORDERED: IBUPROFEN 800 MG TABLET PO ONE (17:45)
[2018-05-26 17:57] VITALS: BP 141/72
== END 2018-05-26 17:57 | disposition home or self-care (01) ==
LOC: EMS 16:16
DX: K11.20 Sialoadenitis, unspecified (principal); M54.2 Cervicalgia; F41.9 Anxiety disorder, unspecified; F32.9 Major depressive disorder, single episode, unspecified; I25.10 Atherosclerotic heart disease of native coronary artery without angina pectoris; J44.9 Chronic obstructive pulmonary disease, unspecified; I11.0 Hypertensive heart disease with heart failure; I50.9 Heart failure, unspecified; E11.9 Type 2 diabetes mellitus without complications; K21.9 Gastro-esophageal reflux disease without esophagitis; E78.00 Pure hypercholesterolemia, unspecified; G89.29 Other chronic pain; E66.01 Morbid (severe) obesity due to excess calories; Z68.43 Body mass index [BMI] 50.0-59.9, adult; Z90.49 Acquired absence of other specified parts of digestive tract; Z79.4 Long term (current) use of insulin
CPT/HCPCS: 82962; 99283; J7512

== ENCOUNTER 2018-06-13 20:21 | Emergency (ER) | payer OTHER ==
[~2018-06-13] VITALS: Ht 165.1 cm; Wt 145.4 kg
[2018-06-13 21:19] LABS: GLUCOSE,POINT OF CARE 162 MG/DL (70-110)
[2018-06-13] MEDS ORDERED: ONDANSETRON HCL 4 MG/2 ML VIAL IM ONE (23:15)
[2018-06-13] MEDS ORDERED: LIDOCAINE 2%/EPI 1:200,000/PF 20 ML VIAL INJ ONE (23:15)
[2018-06-13] MEDS ORDERED: MORPHINE SULFATE 4 MG/ML SYRINGE IM ONE (23:15)
[2018-06-14] MEDS ORDERED: LORazepam 2 MG TABLET PO ONE
[2018-06-14 01:06] VITALS: BP 132/81
== END 2018-06-14 01:41 | disposition home or self-care (01) ==
LOC: EMS 20:22
DX: L02.214 Cutaneous abscess of groin (principal); L02.224 Furuncle of groin; E11.9 Type 2 diabetes mellitus without complications; E78.00 Pure hypercholesterolemia, unspecified; K21.9 Gastro-esophageal reflux disease without esophagitis; I11.0 Hypertensive heart disease with heart failure; I50.9 Heart failure, unspecified; I25.10 Atherosclerotic heart disease of native coronary artery without angina pectoris; J44.9 Chronic obstructive pulmonary disease, unspecified; F41.9 Anxiety disorder, unspecified; Z79.4 Long term (current) use of insulin
CPT/HCPCS: 10060; 82962; 96372; 99284; J2001; J2270; J2405

== ENCOUNTER 2018-09-12 19:06 | Emergency (ER) | payer OTHER ==
[~2018-09-12] VITALS: Ht 167.6 cm; Wt 146.0 kg
[2018-09-12 19:43] LABS: GLUCOSE,POINT OF CARE 99 MG/DL (70-110)
[2018-09-12] MEDS ORDERED: KETOROLAC TROMETHAMINE 60 MG/2 ML VIAL IM ONE (19:45)
[2018-09-12 20:17] VITALS: BP 153/89
== END 2018-09-12 20:53 | disposition home or self-care (01) ==
LOC: EMS 19:08
DX: S92.352A Displaced fracture of fifth metatarsal bone, left foot, initial encounter for closed fracture (principal); G89.29 Other chronic pain; F41.9 Anxiety disorder, unspecified; I25.10 Atherosclerotic heart disease of native coronary artery without angina pectoris; I11.0 Hypertensive heart disease with heart failure; I50.9 Heart failure, unspecified; K21.9 Gastro-esophageal reflux disease without esophagitis; J44.9 Chronic obstructive pulmonary disease, unspecified; E78.00 Pure hypercholesterolemia, unspecified; E66.01 Morbid (severe) obesity due to excess calories; Z68.43 Body mass index [BMI] 50.0-59.9, adult; Z90.49 Acquired absence of other specified parts of digestive tract; Z79.4 Long term (current) use of insulin; W18.40XA Slipping, tripping and stumbling without falling, unspecified, initial encounter; Y93.89 Activity, other specified; Y92.89 Other specified places as the place of occurrence of the external cause; Y99.8 Other external cause status
CPT/HCPCS: 73630; 82962; 96372; 99283; J1885

== ENCOUNTER 2019-11-28 19:51 | Emergency (ER) | payer OTHER ==
[~2019-11-28] VITALS: Ht 167.6 cm; Wt 160.0 kg
[~2019-11-28 19:51] MED LIST changes: +ALBU90AE PO; -APIX5TAB PO; -ATOR20TA86 PO; +ATOR40TA28 PO; +BECL10.62 IH; +DICL2.5D8 OD; +FEBU40T PO; -FEBU80TA PO; +GATI2.5D4 OD; -INS7030 SQ; +LOSA-88 PO; +NEO/3.5O OD; +PRED5DRO25 OD; +[UNRECOGNIZED DRUG - CODE] OD
[2019-11-28] MEDS ORDERED: INSU100V36 SQ (20:07)
[2019-11-28] MEDS ORDERED: INSREG SQ (20:07)
[2019-11-28] MEDS ORDERED: INSU500V SQ (20:09)
[2019-11-28] MEDS ORDERED: INSU500I SQ (20:10)
[2019-11-28 20:13] LABS: GLUCOSE,POINT OF CARE 557 MG/DL (70-110)
[2019-11-28] MEDS ORDERED: PredniSONE 20 MG TABLET PO ONE ×2 (20:30→21:30)
[2019-11-28] MEDS ORDERED: ALBUTEROL SULFATE 2.5 MG/0.5 ML NEB SOLUTION NEB ONE (20:30)
[2019-11-28] MEDS ORDERED: IPRATROPIUM BROMIDE 0.5 MG/2.5 ML NEB SOLUTION NEB ONE ×2 (20:30→21:30)
[2019-11-28] MEDS ORDERED: BECL10.6 IH (20:35)
[2019-11-28 20:48] LABS: BASOPHILS % (AUTO) 0.6 % (0.0-2.0); EOSINOPHILS % (AUTO) 4.3 % (1.0-6.0); HEMATOCRIT 32.7 % (36-46); HEMOGLOBIN 10.4 g/dL (12.0-16.0); LYMPHOCYTES # (AUTO) 1.4 K/uL (1.0-4.8); LYMPHOCYTES % (AUTO) 20.5 % (22.0-44.0); MEAN CORPUSCULAR HEMOGLOBIN 27.4 pg (26.0-34.0); MEAN CORPUSCULAR HGB CONC 31.9 G/dL (31.0-37.0); MEAN CORPUSCULAR VOLUME 86 fL (80-100); MONOCYTES # (AUTO) 0.4 K/uL (0.1-1.0); MONOCYTES % (AUTO) 5.9 % (2.0-9.0); NEUTROPHILS # (AUTO) 4.8 K/uL (1.8-7.7); NEUTROPHILS % (AUTO) 68.7 % (40.0-70.0); PLATELET COUNT (AUTO) 329 K/uL (150-450); RED CELL DISTRIBUTION WIDTH 15.6 % (11.5-14.5)
[2019-11-28 21:11] LABS: ALBUMIN 2.7 g/dL (3.4-5.0); BILIRUBIN,TOTAL 0.3 mg/dL (0.1-1.0); CALCIUM, TOTAL 7.2 mg/dL (8.8-10.5); CREATININE 2.08 mg/dL (0.60-1.30); POTASSIUM 4.8 mmol/L (3.5-5.1); TOTAL PROTEIN, SERUM 6.6 g/dL (6.4-8.2)
[2019-11-28] MEDS ORDERED: ACETAMINOPHEN 325 MG TABLET PO ONE (21:30)
[2019-11-28] MEDS ORDERED: ALBUTEROL SULFATE 5 MG/ML 20 ML NEB SOLN [BULK] NEB ONE ×2 (21:30→23:30)
[2019-11-28] MEDS ORDERED: 0.9% SODIUM CHLORIDE 5 ML NEB SOLUTION NEB ONE ×3 (21:39→23:19)
[2019-11-28 21:55] LABS: BASE EXCESS,VENOUS BLOOD GAS -2.7 (-2.4-2.3); HCO3,VENOUS BLOOD GAS 21.6 (21.0-28.0); PCO2,VENOUS BLOOD GAS 46 (40-45); PH,VENOUS BLOOD GAS 7.326 (7.360-7.410); SOURCE, BLOOD GAS VENOUS; TEMPERATURE, FAHRENHEIT, BG 98.2 FAHREN (96.0-98.6)
[2019-11-28 21:58] LABS: SITE, BLOOD GAS LEFT AC
[2019-11-28] MEDS ORDERED: OxyCODONE HCL/ACETAMINOPHEN 10-325 MG TABLET PO ONE (22:45)
[2019-11-29] MEDS ORDERED: INSULIN REGULAR, HUMAN 100 UNITS/ML SQ ONE (00:30)
[2019-11-29 00:48] LABS: GLUCOSE,POINT OF CARE 299 MG/DL (70-110)
[2019-11-29 00:50] LABS: BASE EXCESS,VENOUS BLOOD GAS -3.1 (-2.4-2.3); HCO3,VENOUS BLOOD GAS 21.4 (21.0-28.0); PCO2,VENOUS BLOOD GAS 46 (40-45); PH,VENOUS BLOOD GAS 7.315 (7.360-7.410); TEMPERATURE, FAHRENHEIT, BG 98.2 FAHREN (96.0-98.6); TOTAL HEMOGLOBIN,VENOUS BGAS 11.2 (12.0-18.0)
[2019-11-29 00:51] LABS: SITE, BLOOD GAS LEFT AC; SOURCE, BLOOD GAS VENOUS
[2019-11-29 02:15] VITALS: BP 143/96
== END 2019-11-29 02:15 | disposition home or self-care (01) ==
LOC: EMS 19:52
DX: J45.901 Unspecified asthma with (acute) exacerbation (principal); E11.65 Type 2 diabetes mellitus with hyperglycemia; G89.29 Other chronic pain; M54.9 Dorsalgia, unspecified; E78.00 Pure hypercholesterolemia, unspecified; K21.9 Gastro-esophageal reflux disease without esophagitis; I11.0 Hypertensive heart disease with heart failure; I50.9 Heart failure, unspecified; I25.10 Atherosclerotic heart disease of native coronary artery without angina pectoris; F41.9 Anxiety disorder, unspecified; Z79.4 Long term (current) use of insulin; Z79.899 Other long term (current) drug therapy
CPT/HCPCS: 36415; 71045; 80053; 82805; 82962; 83880; 84484; 85025; 93005; 94640; 94644; 99285; J1815